=== PATIENT | female | born 1975 | race Caucasian/White ===

== ENCOUNTER 2023-12-15 15:01 | Outpatient (OUT) | payer OTHER, SELFPAY ==
--- NOTE | 2023-12-15 | CONS_ITS ---
CONSULTATION DATE: 12/15/2023 CHIEF COMPLAINT: Includes severe neck pain with right upper extremity weakness. HISTORY OF PRESENT ILLNESS: Review of systems, past medical/surgical history were obtained and documented on the health questionnaire and is available upon request. She is a 48-year-old female, reports having had neck pain for at least the last six months. It occurred after she was performing lifting maneuvers. Patient explained a sudden onset of pain at that time. She has undergone an independent home exercise program, secondary to time constraints and affordability, but the patient has been compliant with her independent home exercise program. Details of the exercises are available upon request. She has also undergone activity modification, has been on nonsteroidal use, with the use of ibuprofen for at least the last six months, but she is unable to take any nonsteroidal agents on a regular basis secondary to moderate GI distress. She has undergone massage therapy as well, at least four different treatments, and despite this, she continues to have progressive pain and weakness of her right upper extremity and pain in her neck occurring bilaterally. EXAMINATION: Notable for patient having hypoesthesia along the right C7 dermatome, weakness of the right triceps and finger flexion, a depressed right triceps reflex, depressed right biceps reflex. She had an equivocally positive right sided Spurling?s sign. She had significant myofascial spasm of the cervical paravertebral muscles occurring bilaterally, worse on the left than the right side. IMPRESSION: Our impression is patient with chronic pain secondary to right C7 radiculopathy. IMAGING: Cervical MRI was performed on 11/19/2023 which revealed a C5-6 disc herniation with right foraminal protrusion. RECOMMENDATIONS: Since she has failed conservative therapy with medication, activity modification, independent home physical therapy program and massage therapy, I feel that she would be an appropriate candidate for a cervical epidural injection under fluoroscopic guidance. Went over the details of the procedure with the patient. All questions were answered. She agrees to proceed with the outlined plan. As part of providing excellent, safe, comprehensive care, the following was completed at our patient's visit: 1. A medication reconciliation and review to ensure accurate knowledge of current/active medications, including asking our patients to inform us about any [id number] medications or herbal remedies/nutritional supplements/alternative remedies. 2. A review to specifically ensure our patients have had annual screening for: elevated body mass index (BMI, see intake chart for exact total), tobacco use, screening for depression, and screening for unhealthy alcohol use. When screening is concerning, patients are provided with education and the specific recommendation to discuss the concerning health issue and treatment options with their primary care provider. HARIKA
== END 2023-12-15 15:02 | disposition home or self-care (01) ==
LOC: PM 15:02
PROVIDERS: Visit Provider Anesthesiology Pain Medicine
DX: M54.50 Low back pain, unspecified (principal); M54.16 Radiculopathy, lumbar region
CPT/HCPCS: G0463

== ENCOUNTER 2024-01-11 09:46 | Day surgery (SDC) | payer OTHER, SELFPAY ==
[2024-01-11 10:48] VITALS: BP 145/85; PULSE 109; TEMP 36.8; O2SAT 100
[2024-01-11 11:21] VITALS: BP 139/89; BP 140/92; PULSE 102; PULSE 99; O2SAT 99
[2024-01-11] MEDS: BUPIVACAINE HCL 0.25% PF 25 MG/10 ML VIAL INJ (11:22)
[2024-01-11] MEDS: DEXAMETHASONE SOD PHOS 10 MG/ML VIAL INJ (11:22)
[2024-01-11] MEDS: IOHEXOL 240 MG/ML - 10 ML VIAL INJ (11:22)
[2024-01-11] MEDS: LIDOCAINE HCL 2% 400 MG/20 ML MDV 5 ML INJ (11:23)
--- NOTE | 2024-01-11 11:33 | W.PM.PROCNOT ---
Date of procedure: 01/11/24 Pre-op diagnosis: Pain due to cervical radiculopathy Post-op diagnosis: same as pre-op Procedure: Procedure: Bilateral C5-6 transforaminal epidural steroid injection Medications: Bupivacaine 0.25% 1cc, lidocaine 2% 1cc, dexamethasone 10mg The patient was seen and examined in the preoperative holding area.? Informed consent was obtained and placed on the chart.? Patient was brought to the medical procedure unit and placed in the prone position where a timeout was completed verifying the correct patient, procedure site, position, and planned special equipment using sterile aseptic technique.? Under direct fluoroscopic visualization a 25-gauge Quincke tipped spinal needle was advanced at level left C5-6 to the designated neural foramen where contrast dye was injected to show adequate spread.? There was no evidence of vascular or adverse uptake.? Epidural spread was appreciated.? The above-mentioned injectate was then placed in a 1.5 mL aliquot preceded by negative aspiration.? The needle was removed. The same procedure, at the same level, was completed on the opposite side. ? Patient was taken to the postprocedural recovery area and monitored for an appropriate length of time before found suitable for discharge in the accompaniment of a responsible adult. Anesthesia: Local Surgeon: Anjel Escamilla Pathology: none sent Condition: stable Disposition: no change
== END 2024-01-11 11:26 | disposition home or self-care (01) ==
PROVIDERS: Visit Provider Anesthesiology
DX: M54.12 Radiculopathy, cervical region (principal)
CPT/HCPCS: 64479; J0665; J1100; Q9966

== ENCOUNTER 2024-06-01 07:45 | Outpatient (OUT) | payer OTHER, SELFPAY ==
--- OUTSIDE RECORDS SUMMARY | 2024-06-01 07:51 | XMS_ITS | CCD ---
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 Role Phone JD ARAUJO Attending Unavailable JD ARAUJO Referring Unavailable JD ARAUJO Attending Unavailable JENNIFER RECINOS Attending Unavailable ADELIA ALDRICH Referring Unavail able Andi MARTINEZ, Anjel Aceves Attending Unavailable Tara Santana Primary Care Unavailable LENA DIAZ Attending Unavailable LENA DIAZ Attending Unavailable Allergies Allergy Classification Reported Allergen(s) Allergy Type Date of Onset Reaction(s) Facility (2 sources) Sulfamethoxazole / Trimethoprim; Translations: [SULFAMETHOXAZOLE-TR IMETHOPRIM] Drug Allergy 3 [facility] Repository (2 sources) sunflower seed extract; Translations: [SUNFLOWER SEED] Drug Allergy 3 [facility] Repository (1 source) Sulfamethoxazole / Trimethoprim; Translations: [Bactrim] Drug Allergy [facility] Repository (1 source) Ciprofloxacin; Translations: [CIPROFLOXACIN] Drug Allergy 4 [facility] Repository Problems Active Problems Problem Classification Problem Date Documented Da te Episodic/Chronic Menopausal disorders (1 source) 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 climacteric states; Translations: [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 climacteric states] Onset: 12-31-2022 Chronic Menstrual disorders (1 source) Irregular menstruation, unspecified; Translations: [Irregular menstruation, unspecified] Onset: 01-14-2023 Chronic Nutritional deficiencies (2 sources) Vitamin D deficiency, unspecified; Translations: [Vitamin D deficiency, unspecified] Onset: 04-22-2022 Chronic Other ear and sense organ disorders (2 sources) Impacted cerumen, right ear; Translations: [Impacted cerumen, right ear] Onset: 09-10-2022 Episodic Other ear and sense organ disorders (1 source) Other specified disorders of right ear; Translations: [Other specified disorders of right ear] Onset: 02-29-2024 Episodic Other ear and sense organ disorders (1 source) Swimmer's ear, right ear; Translations: [Swimmer's ear, right ear] Onset: 02-29-2024 Episodic Substance-related disorders (2 sources) Nicotine dependence, cigarettes, uncomplicated; Translations: [Nicotine dependence, cigarettes, uncomplicated] Onset: 04-22-2022 Chronic Unclassified (1 source) ears plugged Onset: 02-29-2024 Viral infection (2 sources) COVID-19; Translations: [COVID-19] Onset: 04-22-2022 Past or Other Problems Problem Classification Problem Date Documented Da te Episodic/Chronic Noninfectious gastroenteritis (2 sources) Noninfective gastroenteritis and colitis, unspecified; Translations: [Noninfective gastroenteritis and colitis, unspecified] Onset: 05-20-2022 Episodic Other ear and sense organ disorders (1 source) Otalgia, right ear; Translations: [Otalgia, right ear] Onset: 05-05-2023 Episodic Other gastrointestinal disorders (2 sources) Diarrhea, unspecified; Translations: [Diarrhea, unspecified] Onset: 04-22-2022 Episodic Other nutritional; endocrine; and metabolic disorders (2 sources) Abnormal weight loss; Translations: [Abnormal weight loss] Onset: 04-22-2022 Episodic Other upper respiratory disease (1 source) Nasal congestion; Translations: [Nasal congestion] Onset: 05-05-2023 Episodic Other upper respiratory disease (1 source) Nasal congestion Onset: 05-05-2023 Episodic Residual codes; unclassified (1 source) Other specified postprocedural states; Translations: [Other specified postprocedural states] Onset: 05-05-2023 Episodic Results Test Name Value Interpretation Reference Range Facility US NON OB TRANSVAGINALon US 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 Heterogeneous appearing uterus measures: 9.4 x 5.6 x 4.6 cm Endometrium measures: 4.3 mm Multiple fibroids are seen; largest three fabiola: #1: Subserosal right uterus fabiola: 2.3 x 1.7 x 1.7 cm #2: Subserosal left uterus fabiola: 1.3 x 1.1 x 1.4 cm #3: Intramural mid uterus fabiola: 1.0 x 1.4 x 1.1 cm Right ovary appears WNL Left ovary appears WNL Interpreted by: Adelia Aldrich DO Signed by: Adelia Aldrich DO 01/21/23 Final result [facility] HPV DNA High Riskon 01-03-20 HPV Interp [facility] Comment on above: Result Comment: This test amplifies and detects DNA of 14 high-risk HPV types associated with cervical cancer and its precursor lesions (HPV types 16,18, 31, 33, 35, 39, 45, 51, 52, 56, 58, 59, 66, and 68). Sensitivity may be affected by specimen collection methods, stage of infection, and the presence of interfering substances. Results should be interpreted in conjunction with other available laboratory and clinical data. A negative high-risk HPV result does not exclude the possibility of future cytologic HSIL or underlying CIN2-3 or cancer. This test is intended for medical purposes only and is not valid for the evaluation of suspected sexual abuse or for other forensic purposes. Performed By: #### H PVH #### [facility] [address] [place], [place] [id number] Washer Machine: Abundio Julien MD HPV Type 16 Not detected [facility] Comment on above: Performed By: #### H PVH #### [facility] [address] [place] [address] [id number] Washer Machine: Abundio Julien MD HPV Type 18 Not detected [facility] Comment on above: Performed By: #### H PVH #### [facility] [address] [place] [address] [id number] Washer Machine: Abundio Julien MD Other High Risk HPV Not detected Normal [facility] Comment on above: Performed By: #### H PVH #### [address] [id number] Washer Machine: Abundio Julien MD HPV DNA High Riskon 01-02-20 23 HPV Sample .THIN PREP [facility] Comment on above: Performed By: #### H PVH #### [address] [id number] Washer Machine: Abundio Julien MD Source CERVICAL MATERIAL Normal [facility] Comment on above: Performed By: #### H PVH #### [address] [id number] Washer Machine: Abundio Julien MD Cytology Reporton 12-31-2022 Cytology report Cyto stain.thin prep Doc (Cvx/Vag) (NOTE) Path Number: [id number] DIAGNOSIS Imaged ThinPrep Pap - Cervical (1 monolayer slide): Specimen Adequacy: Satisfactory for evaluation. - Endocervical/transforma tion zone component present. Descriptive Diagnosis: Negative for intraepithelial lesion or malignancy. Reactive cellular changes associated with inflammation. Endometrial cells are present in a woman 45 years of age or older. Endometrial cells correlate with menstrual history provided. Cytotech Screener: [id number] Electronically Signed Out Mahesh Treviño D.O. kelin/01/06/2023 Procedure/Addendum HPV Procedure Report Date Ordered: 01/01/2023 Status: Signed Out Date Complete: 01/02/2023 By: System Interface Date Reported: 01/02/2023 Sample: HPV Type 16 Result: Not Detected Ref Range: (Not Detected) Sample: HPV Type 18 Result: Not Detected Ref Range: (Not Detected) Sample: Other High Risk HPV Result: Not Detected Ref Range: (Not Detected) Sample: HPV Interp Result: Ref Range: (Not Detected) This test amplifies and detects DNA of 14 high-risk HPV types associated with cervical cancer and its precursor lesions (HPV types 16,18, 31, 33, 35, 39, 45, 51, 52, 56, 58, 59, 66, and 68). Sensitivity may be affected by specimen collection methods, stage of infection, and the presence of interfering substances. Results should be interpreted in conjunction with other available laboratory and clinical data. A negative high-risk HPV result does not exclude the possibility of future cytologic HSIL or underlying CIN2-3 or cancer. This test is intended for medical purposes only and is not valid for the evaluation of suspected sexual abuse or for other forensic purposes. Performed at [facility], [address] [place] [address] [id number] . Source of Specimen: A: Imaged ThinPrep Pap - Cervical (1 monolayer slide) HPV Reflex?................ ......HPV Regardless Clinical History Z01.419 Routine cia agent exam without abnormal findings Co-Test: ThinPrep Pap with high risk HPV testing LMP: 12/18/2022 Processing Lab: [address] [id number] Interpretation performed at [address] [address] This Pap Test has been evaluated with the assistance of the ThinPrep Pap Test Imaging System. The Pap smear is a screening test primarily for squamous epithelial lesions, which is subject to both false negative and false positive results. Your patient should be reminded to consult you immediately if she experiences any suspicious signs or symptoms, regardless of her Pap smear result. GYNECOLOGIC CYTOLOGY REPORT Patient Name: [facility] Rec: [id number] [facility] ANATOMIC PATHOLOGY [address] [place] [address]. [place], [place] [address] [facility] Estradiolon 12-31-2022 Estradiol 370.0 pg/mL [facility] Comment on above: Result Comment: FEMALES: Normally menstruating Luteal phase 60-232 Follicular phase 31-90 Midcycle phase 60-533 Postmenopausal (untreated) <138 Fulvestrant treatment will show an increased estradiol concentration with this methodology. Alternate methodologies are available upon request. Performed By: #### F , E2 #### [address] [id number] Washer Machine: Abundio Julien MD Follicle Stim. Hormon 2022 Follicle Stim. Horm 16.8 mIU/mL Normal [facility] Comment on above: Result Comment: Refe rence Range: Male: 1.5-12.4 Ovulating Female: Follicular Phase 3.5-12.5 Ovulation Phase 4.7-21.5 Luteal Phase 1.7-7.7 Postmenopausal Female: 25.8-134.8 Performed By: #### F SH, E2 #### [facility] [place] [address] [place] [address] Washer Machine: Abundio Julien MD Office Visiton 09-10-2022 Follow-up visit [id number] Manolo Fan 1975 F Date Provider Department Center 09/10/2022 Yesica1-JENNIFER RECINOS [facility] INT MED Comprehensiv No family history on file Level of Service:[id number] AR OFFICE/OUTPATIENT ESTABLISHED LOW MDM 20-29 MIN (GC) Reason for Visit and Comments: ear infection [Other] - Right ear started a few weeks ago. Normal [facility] CBC WITH DIFFon 05-28-2022 ABS BASOPHIL 0.08 x10^3ul Normal (0.00 - 0.16) [facility] Comment on above: Order Comment: 4ACIL ITY: [facility] FACILITY: [facility] [id number] Performed By: #### C BC/D, CHEM-C, CELIC4, ESRCRP, TSHFX, IGA, LIP #### [facility] [address] [facility], [address] ABS EOSINOPHIL 0.05 x10^3ul Normal (0.00 - 0.40) [facility] Comment on above: Order Comment: 4ACIL ITY: [facility] FACILITY: [facility] [id number] Performed By: #### C BC/D, CHEM-C, CELIC4, ESRCRP, TSHFX, IGA, LIP #### [facility] [address] [facility], [address] ABS IMMATURE GRANS 0.03 x10^3ul Normal (0.00 - 0.11) [facility] Comment on above: Order Comment: 4ACIL ITY: [facility] FACILITY: [facility] [id number] Performed By: #### C BC/D, CHEM-C, CELIC4, ESRCRP, TSHFX, IGA, LIP #### [facility] [address] [facility], [address] ABS LYMPHOCYTE 1.79 x10^3ul Normal (0.96 - 5.40) [facility] Comment on above: Order Comment: 4ACIL ITY: [facility] FACILITY: [facility] [id number] Performed By: #### C BC/D, CHEM-C, CELIC4, ESRCRP, TSHFX, IGA, LIP #### [facility] [address] [facility], [address] ABS MONOCYTE 0.63 x10^3ul Normal (0.10 - 1.00) [facility] Comment on above: Order Comment: 4ACIL ITY: [facility] FACILITY: [facility] [id number] Performed By: #### C BC/D, CHEM-C, CELIC4, ESRCRP, TSHFX, IGA, LIP #### [facility] [facility], [address] ABS NEUTROPHIL 7.11 x10^3ul High (1.50 - 7.00) [facility] Comment on above: Order Comment: 4ACIL ITY: [facility] FACILITY: [facility] [id number] Performed By: #### C BC/D, CHEM-C, CELIC4, ESRCRP, TSHFX, IGA, LIP #### [facility] [address] [facility], [address] Basophils/100 WBC (Bld) 0.8 % Normal () [facility] Comment on above: Order Comment: 4ACIL ITY: [facility] FACILITY: [facility] [id number] Performed By: #### C BC/D, CHEM-C, CELIC4, ESRCRP, TSHFX, IGA, LIP #### [facility] [address] [facility], [id number] Eosinophils/100 WBC (Bld) 0.5 % Normal () [facility] Comment on above: Order Comment: 4ACIL ITY: [facility] FACILITY: [facility] [id number] Performed By: #### C BC/D, CHEM-C, CELIC4, ESRCRP, TSHFX, IGA, LIP #### [facility] [address] [place], [place] [address]or Rd. [facility], [address] Hematocrit (Bld) [Volume fraction] 39.4 % Normal (37.0 - 47.0) [facility] Comment on above: Order Comment: 4ACIL ITY: [facility] FACILITY: [facility] [id number] Performed By: #### C BC/D, CHEM-C, CELIC4, ESRCRP, TSHFX, IGA, LIP #### [facility] [address] [place] [address] Rd. [facility], [address] Hemoglobin (Bld) [Mass/Vol] 13.3 g/dL Normal (12.0 - 16.0) [facility] Comment on above: Order Comment: 4ACIL ITY: [facility] FACILITY: [facility] [id number] Performed By: #### C BC/D, CHEM-C, CELIC4, ESRCRP, TSHFX, IGA, LIP #### [facility] [address] [facility], [address] IMMATURE GRANS (IG) 0.3 % Normal () [facility] Comment on above: Order Comment: 4ACIL ITY: [facility] FACILITY: [facility] [id number] Performed By: #### C BC/D, CHEM-C, CELIC4, ESRCRP, TSHFX, IGA, LIP #### [facility] [address] [facility], [address] LYMPS 18.5 % Normal () [facility] Comment on above: Order Comment: 4ACIL ITY: [facility] FACILITY: [facility] [id number] Performed By: #### C BC/D, CHEM-C, CELIC4, ESRCRP, TSHFX, IGA, LIP #### [facility] [address] [facility], [address] MCH (RBC) [Entitic mass] 29.8 pg Normal (27.0 - 33.0) [facility] Comment on above: Order Comment: 4ACIL ITY: [facility] FACILITY: [facility] [id number] Performed By: #### C BC/D, CHEM-C, CELIC4, ESRCRP, TSHFX, IGA, LIP #### [facility] [address] [facility], [address] MCHC (RBC) [Mass/Vol] 33.8 g/dL Normal (30.0 - 37.0) [facility] Comment on above: Order Comment: 4ACIL ITY: [facility] FACILITY: [facility] [id number] Performed By: #### C BC/D, CHEM-C, CELIC4, ESRCRP, TSHFX, IGA, LIP #### [facility] [address] [facility], [address] MCV (RBC) [Entitic vol] 88.3 fL Normal (81.0 - 99.0) [facility] Comment on above: Order Comment: 4ACIL ITY: [facility] FACILITY: [facility] [id number] Performed By: #### C BC/D, CHEM-C, CELIC4, ESRCRP, TSHFX, IGA, LIP #### [facility] [address] [facility], [address] MONOS 6.5 % Normal () [facility] Comment on above: Order Comment: 4ACIL ITY: [facility]: [facility] [id number] Performed By: #### C BC/D, CHEM-C, CELIC4, ESRCRP, TSHFX, IGA, LIP #### [facility] [address] [place], [address] PLT 312 x10^3ul Normal (130 - 400) [facility] Comment on above: Order Comment: 4ACIL ITY: [facility]: [facility] [id number] Performed By: #### C BC/D, CHEM-C, CELIC4, ESRCRP, TSHFX, IGA, LIP #### [facility] [address] [place], [address] RBC 4.46 x10^6ul Normal (4.20 - 5.40) [facility] Comment on above: Order Comment: 4ACIL ITY: [facility]: [facility] [id number] Performed By: #### C BC/D, CHEM-C, CELIC4, ESRCRP, TSHFX, IGA, LIP #### [facility] [address] [place], [address] RDW-SD 49.1 fl High (37.0 - 49.0) [place] [facility] Comment on above: Order Comment: 4ACIL ITY: [facility]: [facility] [id number] Performed By: #### C BC/D, CHEM-C, CELIC4, ESRCRP, TSHFX, IGA, LIP #### [facility] [address] [place], [address] SEGS 73.4 % Normal () [facility] Comment on above: Order Comment: 4ACIL ITY: [facility]: [facility] [id number] Performed By: #### C BC/D, CHEM-C, CELIC4, ESRCRP, TSHFX, IGA, LIP #### [facility] [address] [place], [address] WBC 9.68 x10^3ul Normal (3.80 - 10.60) [facility] Comment on above: Order Comment: 4ACIL ITY: [facility] FACILITY: [facility] [id number] Performed By: #### C BC/D, CHEM-C, CELIC4, ESRCRP, TSHFX, IGA, LIP #### [facility] [address] [place], [address] COMP METABOLIC PANEL W/GFRon 05-28-2022 Albumin [Mass/Vol] 4.3 g/dL Normal (3.5 - 5.0) [facility] Comment on above: Performed By: #### C BC/D, CHEM-C, CELIC4, ESRCRP, TSHFX, IGA, LIP #### [facility] [address] [place], [address] ALK PHOS 65 U/L Normal (38 - 126) [facility] Comment on above: Performed By: #### C BC/D, CHEM-C, CELIC4, ESRCRP, TSHFX, IGA, LIP #### [facility] [address] [place], [address] ALT [Catalytic activity/Vol] 16 U/L Normal (1 - 35) [facility] Comment on above: Performed By: #### C BC/D, CHEM-C, CELIC4, ESRCRP, TSHFX, IGA, LIP #### [facility] [address] [place], [address] AST [Catalytic activity/Vol] 22 U/L Normal (15 - 46) [facility] Comment on above: Performed By: #### C BC/D, CHEM-C, CELIC4, ESRCRP, TSHFX, IGA, LIP #### [place] [facility] [address] [place], [address] Bilirubin [Mass/Vol] 0.7 mg/dL Normal (0.2 - 1.3) [facility] Comment on above: Performed By: #### C BC/D, CHEM-C, CELIC4, ESRCRP, TSHFX, IGA, LIP #### [facility] [address] [place], [address] Calcium [Mass/Vol] 9.0 mg/dL Normal (8.6 - 10.6) [facility] Comment on above: Performed By: #### C BC/D, CHEM-C, CELIC4, ESRCRP, TSHFX, IGA, LIP #### [facility] [address] [place], [address] Chloride [Moles/Vol] 105 mmol/L Normal (98 - 107) [facility] Comment on above: Performed By: #### C BC/D, CHEM-C, CELIC4, ESRCRP, TSHFX, IGA, LIP #### [facility] [address] [place], [address] CO2 [Moles/Vol] 23 mmol/L Normal (22 - 30) [place] [facility] Comment on above: Performed By: #### C BC/D, CHEM-C, CELIC4, ESRCRP, TSHFX, IGA, LIP #### [place] [facility] [address] [place], [address] Creatinine [Mass/Vol] 0.63 mg/dL Normal (0.52 - 1.04) [facility] Comment on above: Performed By: #### C BC/D, CHEM-C, CELIC4, ESRCRP, TSHFX, IGA, LIP #### [facility] [address] [place], [address] GFR- AMER 122.6 ML/M1.7 Normal (60.0 - 140.1) [facility] Comment on above: Performed By: #### C BC/D, CHEM-C, CELIC4, ESRCRP, TSHFX, IGA, LIP #### [place] [facility] [address] [place], [address] GFR-NON AFRIC-AMER 101.3 ML/M1.7 Normal (60.0 - 115.8) [facility] Comment on above: Performed By: #### C BC/D, CHEM-C, CELIC4, ESRCRP, TSHFX, IGA, LIP #### [place] [facility] [address] [place], [address] Glucose [Mass/Vol] 100 mg/dL Normal (74 - 106) [facility] Comment on above: Performed By: #### C BC/D, CHEM-C, CELIC4, ESRCRP, TSHFX, IGA, LIP #### [place] [facility] [address] [place], [address] Potassium [Moles/Vol] 4.5 mmol/L Normal (3.5 - 5.1) [facility] Comment on above: Performed By: #### C BC/D, CHEM-C, CELIC4, ESRCRP, TSHFX, IGA, LIP #### [place] [facility] [address] [place], [address] Protein [Mass/Vol] 7.1 g/dL Normal (6.3 - 8.2) [facility] Comment on above: Performed By: #### C BC/D, CHEM-C, CELIC4, ESRCRP, TSHFX, IGA, LIP #### [place] [facility] [address] [place], [address] Sodium [Moles/Vol] 135 mmol/L Low (137 - 145) [facility] Comment on above: Performed By: #### C BC/D, CHEM-C, CELIC4, ESRCRP, TSHFX, IGA, LIP #### [facility] [address] [facility], [address] Urea nitrogen [Mass/Vol] 12 mg/dL Normal (7 - 17) [facility] Comment on above: Performed By: #### C BC/D, CHEM-C, CELIC4, ESRCRP, TSHFX, IGA, LIP #### [facility] [address] [facility], [address] DGP,IGA/IGG + TTG, IGA/IGGon 05-28-2022 ANTI-TTG, IGA 0.9 U/mL Normal (0.0 - 10.0) [facility] in Comment on above: Performed By: #### C BC/D, CHEM-C, CELIC4, ESRCRP, TSHFX, IGA, LIP #### [facility] [address] [facility], [address] ANTI-TTG, IGG 0.7 U/mL Normal (0.0 - 10.0) [facility] in Comment on above: Result Comment: REFERENCE RANGE DEAMIDATED GLIADIN PEPTIDE, IGA & IGG : < 7.0 U/mL = NEGATIVE 7.0 - 10.0 U/mL = BORDERLINE > 10.0 U/mL = POSITIVE REFERENCE RANGE ANTI-TTG, IGA & IGG: < 7.0 U/mL = NEGATIVE 7.0 - 10.0 U/mL = BORDERLINE > 10.0 U/mL = POSITIVE PERFORMED ON stiQRd [facility] 06-14-2021 Performed By: #### C BC/D, CHEM-C, CELIC4, ESRCRP, TSHFX, IGA, LIP #### [facility] [address] [facility], [address] DEAMIDATED GLIADIN PEPTIDE, IGA 4.1 U/mL Normal (0.0 - 10.0) [facility] Comment on above: Performed By: #### C BC/D, CHEM-C, CELIC4, ESRCRP, TSHFX, IGA, LIP #### [facility] [address] [place], [address] DEAMIDATED GLIADIN PEPTIDE, IGG <0.6 Normal (0.0 - 10.0) [facility] Comment on above: Performed By: #### C BC/D, CHEM-C, CELIC4, ESRCRP, TSHFX, IGA, LIP #### [facility] [address] [place], [address] IgA, TOTALon 05-28-2022 IgA, TOTAL 282 MG/DL Normal (70 - 400) [facility] Comment on above: Performed By: #### C BC/D, CHEM-C, CELIC4, ESRCRP, TSHFX, IGA, LIP #### [facility] [address] [place], [address] LIPASEon 05-28-2022 Lipase [Catalytic activity/Vol] 32 U/L Normal (23 - 300) [facility] Comment on above: Performed By: #### C BC/D, CHEM-C, CELIC4, ESRCRP, TSHFX, IGA, LIP #### [facility] [address] [place], [address] SED RATE - CRPon 05-28-2022 CRP EXTENDED RANGE <0.34 Normal (0.00 - 3.20) [facility] Comment on above: Result Comment: CRP RESULT IS <0.34 MG/L CRP MIN DETECTION = 0.34 MG/L Performed By: #### C BC/D, CHEM-C, CELIC4, ESRCRP, TSHFX, IGA, LIP #### [facility] [address] [place], [address] SED RATE WEST. 6 MM/HR Normal (0 - 25) [facility] Comment on above: Performed By: #### C BC/D, CHEM-C, CELIC4, ESRCRP, TSHFX, IGA, LIP #### [facility] [address] [place], [address] TSH WITH REFLEXon 05-28-2022 REFLEX T4, FREE NO Normal () [facility] Comment on above: Performed By: #### C BC/D, CHEM-C, CELIC4, ESRCRP, TSHFX, IGA, LIP #### [facility] [address] [facility], [address] TSH Qn 0.940 m[IU]/L Normal (0.470 - 4.680) [facility] Comment on above: Performed By: #### C BC/D, CHEM-C, CELIC4, ESRCRP, TSHFX, IGA, LIP #### [facility] [address] [facility], [address] Office Visiton 05-20-2022 Follow-up visit [id number] Manolo Fan 1975 F Date Provider Department Center 05/20/2022 [facility] MED Comprehensiv No family history on file Level of Service:14927 [place] OFFICE/OUTPATIENT ESTABLISHED MOD MDM 30-39 MIN Reason for Visit and Comments: follow up [Other] - Pt here lab follow up. Diarrhea [35] Normal [facility] CT ABDOMEN PELVIS WO IV CONT Yeni 05-07-2022 CT ABDOMEN PELVIS WO IV CONTRAST History:Unintentional weight loss after Covid infection CT abdomen and pelvis without contrast Comparison:None Technique: Axial images to the abdomen and pelvis were obtained without contrast. Subsequently sagittal and coronal images were submitted to PACS. Automated exposure control was used Findings: CT abdomen: 3 mm nonobstructing left renal stone is confirmed. There is no hydronephrosis there are no right renal stones. No acute process is appreciated in the unenhanced liver or spleen. Doppler small in size. Pancreas is not well seen due to poor fascial plane definition. Adrenal glands appear grossly normal. Abdominal aorta is normal. Pelvis: No urinary bladder stone is appreciated. The uterus is anteverted no obvious bowel obstruction. Assessment of bowel is hampered without oral contrast. There is no free air. No acute osseous process is observed. No bulky adenopathy is noted. Lumbar spine is free of any acute process IMPRESSION: Impression: *There is a 3 mm nonobstructing inferior left renal stone noted as detailed above' All CT scans at this facility use dose modulation, iterative reconstruction, and/or weight based dosing when appropriate to reduce radiation dose to as low as reasonably achievable. Electronically signed: Veena Bach. Normal [facility] CBC WITH AUTO DIFFERENTIALon 04-22-2022 Basophils (Bld) [#/Vol] 0.07 10*3/uL Normal 0.00-0.20 [facility] Comment on above: Performed By: #### L [id number] #### [facility] (BEAKER) [address] [place] [address] Basophils/100 WBC (Bld) 0.9 % Normal 0.0-1.0 [facility] Comment on above: Performed By: #### L [id number] #### [facility] (BEAKER) [address] [place] [address] Eosinophils (Bld) [#/Vol] 0.08 10*3/uL Normal 0.00-0.50 [facility] Comment on above: Performed By: #### L [id number] #### [facility] (BEAKER) [address] [place] [address] Eosinophils/100 WBC (Bld) 1.0 % Normal 0.0-6.0 [facility] Comment on above: Performed By: #### L [id number] #### [facility] (BEAKER) [address] [place] [address] Erythrocyte distribution width (RBC) [Ratio] 14.5 % Normal 11.5-15.0 [facility] Comment on above: Performed By: #### L [id number] #### [facility] (BEAKER) [address] [facility] [place] [address] ERYTHROCYTE MEAN CORPUSCULAR HEMOGLOBIN CONCENTRATION (G/DL) BY AUTOMATED 32.6 g/dL Normal 32.0-35.0 [facility] Comment on above: Performed By: #### L [id number] #### [facility] (BEAKER) [address] [facility] [place] [address] Hematocrit (Bld) [Volume fraction] 39.6 % Normal 36.0-48.0 [facility] Comment on above: Performed By: #### L [id number] #### [facility] (BEAKER) [address] [place] [address] Hemoglobin (Bld) [Mass/Vol] 12.9 g/dL Normal 12.0-15.0 [facility] Comment on above: Performed By: #### L [id number] #### [facility] ([facility] [address] [place] [address] Immature granulocytes (Bld) [#/Vol] 0.02 10*3/uL Normal 0.00-0.20 [facility] Comment on above: Performed By: #### L [id number] #### [facility] (BEAKER) [address] [place] [address] Immature granulocytes/100 WBC (Bld) 0.3 % Normal 0.0-1.0 [facility] Comment on above: Performed By: #### L [id number] #### [facility] (BEAKER) [address] [place] [address] Lymphocytes (Bld) [#/Vol] 2.09 10*3/uL Normal 1.20-4.00 [facility] Comment on above: Performed By: #### L [id number] #### [facility] (BEAKER) [address] [place] [address] Lymphocytes/100 WBC (Bld) 26.6 % Normal 20.0-45.0 [facility] Comment on above: Performed By: #### L [id number] #### [facility] (BEAKER) [address] [place] [address] MCH (RBC) [Entitic mass] 28.7 pg Normal 27.0-33.0 [facility] Comment on above: Performed By: #### L [id number] #### [facility] (BEAKER) [address] [place] [address] MCV (RBC) [Entitic vol] 88.0 fL Normal 82.0-98.0 [facility] Comment on above: Performed By: #### L [id number] #### [facility] ([facility]) [address] [place] [address] Monocytes (Bld) [#/Vol] 0.51 10*3/uL Normal 0.10-1.00 [facility] Comment on above: Performed By: #### L [id number] #### [facility] ([facility]) [address] [place] [address] Monocytes/100 WBC (Bld) 6.5 % Normal 5.0-12.0 [facility] Comment on above: Performed By: #### L [id number] #### [facility] ([facility]) [address] [place] [address] Neutrophils (Bld) [#/Vol] 5.10 10*3/uL Normal 1.60-7.60 [facility] Comment on above: Performed By: #### L [id number] #### [facility] ([facility]) [address] [place] [address] Neutrophils/100 WBC (Bld) 64.7 % Normal 40.0-72.0 [facility] Comment on above: Performed By: #### L [id number] #### [facility] ([facility]) [address] [place] [address] NRBC (PER 100 WBCS) BY AUTOMATED COUNT 0.0 % Normal 0.0-0.0 [facility] Comment on above: Performed By: #### L [id number] #### [facility] ([facility]) [address] [place] [address] PLATELETS (10*3/UL) IN BLOOD AUTOMATED COUNT 293 10*3/uL Normal 150-400 [facility] Comment on above: Performed By: #### L [id number] #### [facility] ([facility]) [address] [place] [address] RBC (Bld) [#/Vol] 4.50 10*6/uL Normal 3.80-5.00 [facility] Comment on above: Performed By: #### L [id number] #### [facility] ([facility]) [address] [place] [address] WBC (Bld) [#/Vol] 7.87 10*3/uL Normal 4.00-10.60 [facility] Comment on above: Performed By: #### L [id number] #### [facility] ([facility]) [address] [place] [address] CELIAC REFLEX PANELon 2022 IMMUNOGLOBULIN A 230 mg/dL Normal 68-[address] [facility] Comment on above: Result Comment: Total IgA is within or higher than established ranges. Tissue Transglutaminase, IgA to follow. REFERENCE INTERVAL: Immunoglobulin A Access complete set of age- and/or gender-specific reference intervals for this test in the [facility] Test Directory ([employer]). Performed By: [facility] [address] [place] [address] Motor Vehicle Compliance Analyst: Donald Jeronimo MD, PhD Performed By: #### L [id number] #### [facility] ([facility]) [address] [place] [address] COMPREHENSIVE METABOLIC PANE [place] 04-22-2022 Albumin [Mass/Vol] 4.3 g/dL Normal 3.5-5.7 [facility] Comment on above: Performed By: #### L [id number] #### [facility] ([facility]) [address] [place] [address] ALP [Catalytic activity/Vol] 56 U/L Normal 34-104 [facility] Comment on above: Performed By: #### L [id number] #### [facility] ([facility]) [address] [place] [address] ALT [Catalytic activity/Vol] 16 U/L Normal 7-52 [facility] Comment on above: Performed By: #### L [id number] #### [facility] ([facility]) [address] [place] [address] Anion gap [Moles/Vol] 7 mmol/L Normal 7-20 [facility] Comment on above: Performed By: #### L [id number] #### [facility] (BEAKER) [address] [place] [address] AST [Catalytic activity/Vol] 20 U/L Normal 13-39 [facility] Comment on above: Performed By: #### L [id number] #### [facility] (BEAKER) [address] [place] [address] Bilirubin [Mass/Vol] 0.6 mg/dL Normal 0.3-1.0 [facility] Comment on above: Performed By: #### L [id number] #### [facility] (BEAKER) [address] [place] [address] Calcium [Mass/Vol] 9.2 mg/dL Normal 8.6-10.3 [facility] Comment on above: Performed By: #### L [id number] #### [facility] (BEAKER) [address] [place] [address] Chloride [Moles/Vol] 103 mmol/L Normal 98-107 [facility] Comment on above: Performed By: #### L [id number] #### [facility] (BEAKER) [address] [place] [address] CO2 [Moles/Vol] 28 mmol/L Normal 21-31 [facility] Comment on above: Performed By: #### L [id number] #### [facility] (BEAKER) [address] [place] [address] Creatinine [Mass/Vol] 0.77 mg/dL Normal 0.60-1.20 [facility] Comment on above: Performed By: #### L [id number] #### [facility] (BEAKER) [address] [place] [address] GLOMERULAR FILTRATION RATE ML/MIN/1.73 SQ M.PREDICTED 92.2 mL/min/1.73m*2 Normal >60.0 [facility] Comment on above: Result Comment: The [facility]???s estimated glomerular filtration rate (eGFR) will no longer include consideration of race in its calculation. The National Kidney Foundation???s eGFR Task Force developed new recommendations for the estimation of the glomerular filtration rate in the [place] They recommend immediate implementation of the new equation refit without the race variable in all laboratories because the calculation does not include race. In addition to not including race in the calculation and reporting, it included diversity in its development, and has acceptable performance characteristics and potential consequences that do not disproportionately affect any one group of individuals. Performed By: #### L [id number] #### [facility] ([facility]) [address] [place] [address] Glucose [Mass/Vol] 80 mg/dL Normal 70-100 [facility] Comment on above: Performed By: #### L [id number] #### [facility] ([facility]) [address] [place] [address] Potassium [Moles/Vol] 3.9 mmol/L Normal 3.5-5.1 [facility] Comment on above: Performed By: #### L [id number] #### [facility] ([facility]) [address] [place] [address] Protein [Mass/Vol] 6.5 g/dL Normal 6.0-8.3 [facility] Comment on above: Performed By: #### L [id number] #### [facility] ([facility]) [address] [place] [address] Sodium [Moles/Vol] 138 mmol/L Normal 136-145 [facility] Comment on above: Performed By: #### L [id number] #### [facility] (BEAKER) [address] [place] [address] Urea nitrogen [Mass/Vol] 11 mg/dL Normal 7-25 [facility] Comment on above: Performed By: #### L [id number] #### [facility] ([facility]) [address] [place] [address] UREA NITROGEN/CREATININE (MASS RATIO) IN SER/PLAS 14.29 Normal [facility] Comment on above: Performed By: #### L [id number] #### [facility] (BEAKER) [address] [place] [address] LIPID PANELon 04-22-2022 CHOL/HDL 2.68 mg/dL Normal [facility] Comment on above: Performed By: #### L [id number] #### [facility] ([facility]) [address] [place] [address] Cholesterol [Mass/Vol] 217 mg/dL High 120-200 [facility] Comment on above: Performed By: #### L [id number] #### [facility] ([facility]) [address] [place] [address] Magnesium [Mass/Vol] 62 mg/dL Normal 40-149 [facility] Comment on above: Result Comment: TRIG LYCERIDE REFERENCE RANGE: 20 YEARS AND OLDER CARDIOVASCULAR RISK LESS THAN 150 mg/dL LOW RISK 150 TO 199 mg/dL BORDERLINE RISK 200 mg/dL AND GREATER HIGH RISK Performed By: #### L [id number] #### [facility] ([facility]) [address] [place] [address] Magnesium [Mass/Vol] 124 mg/dL Normal 0-160 [facility] Comment on above: Performed By: #### L [id number] #### [facility] ([facility]) [address] [place] [address] Magnesium [Mass/Vol] 81 mg/dL Normal 23-92 [facility] Comment on above: Performed By: #### L [id number] #### [facility] ([facility]) [address] [place] [address] NON HDL CHOL. (LDL+VLDL) 136 Normal [facility] Comment on above: Performed By: #### L [id number] #### [facility] ([facility]) [address] [place] [address] TOTAL VLDL-C 12 mg/dL Normal 0-40 [facility] Comment on above: Performed By: #### L [id number] #### [facility] ([facility]) [address] [place] [address] [place] 04-22-2022 Lab [id number] Manolo Fan 1975 F Date Provider Department [place] 04/22/20222241-[facility] RESOURCE [facility] Comprehensiv No family history on file Normal [facility] Office Visiton 04-22-2022 Follow-up visit [id number] Manolo Fan 1975 F Date Provider Department Center 04/22/2022 [place] Mitchell [facility] INT MED Comprehensiv No family history on file Level of Service:97426 [place] PERIODIC PREVENTIVE MED EST PATIENT 40-64YRS Reason for Visit and Comments: weightloss [Other] - Pt has concerns for weight loss since having covid in the past. Normal [facility] TISSUE TRANSGLUTAMINASE, IGA on 04-22-2022 TISSUE TRANSGLUTAMINASE, IGA <2 Normal 0-3 [facility] Comment on above: Result Comment: No further celiac testing to be performed. INTERPRETIVE INFORMATION: Tissue Transglutaminase (tTG) Antibody, IgA 3 U/mL or less: Negative 4-10 U/mL: Weak Positive 11 U/mL or greater: Positive Presence of the tissue transglutaminase (tTG) IgA antibody is associated with glutensensitive enteropathies such as celiac disease and dermatitis herpetiformis. tTG IgA antibody concentrations greater than 40 U/mL usually correlate with results of duodenal biopsies consistent with a diagnosis of celiac disease. For antibody concentrations greater or equal to 4 U/mL but less than or equal to 40 U/mL, additional testing for endomysial (ERIC) IgA concentrations may improve the positive predictive value for disease. Performed By: [facility] [address] [place] [address] Motor Vehicle Compliance Analyst: Donald Jeronimo MD, PhD Performed By: #### L [id number] #### [facility]) [address] [place] [address] TSH3 REFLEX TO FT4on 023 THYROTROPIN (MIU/L) IN SER/PLAS BY DETECTION LIMIT <= 0.05 MIU/L 1.24 mIU/L Normal 0.34-5.60 [facility] Comment on above: Performed By: #### L [id number] #### [facility]) [address] [place] [address] VITAMIN D 25 HYDROXYon 04-22 CALCIDIOL (25 [place] VITAMIN D3) (NG/ML) IN SER/PLAS 53.0 ng/mL Normal 30.0-80.0 [facility] Comment on above: Result Comment: >80. 0 Toxicity possible Performed By: #### L [id number] #### [facility] (BEAKER) [address] [place] [address] CBC COMPLETE BLOOD COUNTon 10-07-2019 Erythrocyte distribution width (RBC) [Ratio] 14.0 % Normal 11.5-15.0 [facility] Comment on above: Performed By: #### 5 0608 #### [facility] [address] [place] [address], [facility] Hematocrit (Bld) [Volume fraction] 37.4 % Normal 36.0-45.0 [facility] Comment on above: Performed By: #### 5 0608 #### [facility] [address] [place] [address], [facility] Hemoglobin (Bld) [Mass/Vol] 12.1 g/dL Normal 12.0-15.0 [facility] Comment on above: Performed By: #### 5 0608 #### [facility] [address] [place] [address], [facility] MCH (RBC) [Entitic mass] 28.9 pg Normal 27.0-33.0 [facility] Comment on above: Performed By: #### 5 0608 #### [facility] [address] [place] [address], [facility] MCHC (RBC) [Mass/Vol] 32.4 g/dL Normal 32.0-35.0 [facility] Comment on above: Performed By: #### 5 0608 #### [facility] [address] [facility] [place] [address], [facility] MCV (RBC) [Entitic vol] 89.5 fL Normal 82.0-98.0 [facility] Comment on above: Performed By: #### 5 0608 #### [facility] [address] [facility] [place] [place] [address] [place] [address] Nucleated RBC/100 WBC (Bld) [Ratio] 0 % Normal 0-[address] [facility] Comment on above: Performed By: #### 5 0608 #### [facility] [address] [facility] [place] [address], [facility] PLAT CNT 267 10*3/uL Normal 150-400 [facility] Comment on above: Performed By: #### 5 0608 #### [facility] [address] [facility]. [address] RBC (Bld) [#/Vol] 4.18 10*6/uL Normal 3.80-5.[address] [facility] Comment on above: Performed By: #### 5 0608 #### [facility] [address] WBC (Bld) [#/Vol] 4.71 10*3/uL Normal 4.00-10.60 [facility] Comment on above: Performed By: #### 5 0608 #### [facility] [address] [facility]. [address] COMP METABOLIC PANELon 10-06 Albumin [Mass/Vol] 4.4 g/dL Normal 3.5-5.7 [facility] Comment on above: Performed By: #### 0 0121, 66866 #### [facility] [address] [facility]. [address] ALKALINE PHOSPH 41 IU/L Normal 34-104 [facility] Comment on above: Performed By: #### 0 0121, 47190 #### [facility] [address] [facility]. [address] ALT [Catalytic activity/Vol] 5 U/L Low 7-52 [facility] Comment on above: Performed By: #### 0 0121, 83437 #### [facility] [address] [facility]. [address] AST [Catalytic activity/Vol] 9 U/L Low 13-39 [facility] Comment on above: Performed By: #### 0 0121, 41951 #### [facility] [address] [place] [address], [place] Bilirubin [Mass/Vol] 0.5 mg/dL Normal 0.3-1.[address] [facility] Comment on above: Performed By: #### 0 0121, 05325 #### [facility] [address] [place] [address], [place] Calcium [Mass/Vol] 8.9 mg/dL Normal 8.6-10.3 [facility] Comment on above: Performed By: #### 0 0121, 93606 #### [facility] [address] [place] [address], [place] Chloride [Moles/Vol] 106 mmol/L Normal 98-107 [facility] Comment on above: Performed By: #### 0 012, 37690 #### [facility] [address] [place] [address], [place] CO2 [Moles/Vol] 28 mmol/L Normal 21-31 [facility] Comment on above: Performed By: #### 0 012, 98265 #### [facility] [address] [place] [address], [place] Creatinine [Mass/Vol] 0.77 mg/dL Normal 0.60-1.20 [facility] Comment on above: Performed By: #### 0 0121, 68391 #### [facility] [address] [place] [address], [place] GFR/1.73 sq M predicted among blacks MDRD (S/P/Bld) [Vol rate/Area] mL/min/{1.73_m2} Normal >60 [facility] Comment on above: Performed By: #### 0 0121, 40175 #### [facility] [address] [place] [address], [facility] GFR/1.73 sq M predicted among non-blacks MDRD (S/P/Bld) [Vol rate/Area] mL/min/{1.73_m2} Normal >60 [facility] Comment on above: Performed By: #### 0 0121, 56061 #### [facility] [address] [place] [address], [place] Glucose [Mass/Vol] 105 mg/dL High 70-100 [facility] Comment on above: Performed By: #### 0 0121, 71405 #### [facility] [address] [place] [address], [place] Potassium [Moles/Vol] 4.2 mmol/L Normal 3.5-5.1 [facility] Comment on above: Performed By: #### 0 012, 60541 #### [facility] [address] [place] [address], [place] Protein [Mass/Vol] 6.5 g/dL Normal 6.0-8.3 [facility] Comment on above: Performed By: #### 0 0121, 09325 #### [facility] [address] [place] [address], [place] Sodium [Moles/Vol] 138 mmol/L Normal 136-145 [facility] Comment on above: Performed By: #### 0 0121, 25123 #### [facility] [address] [place] [address], [place] Urea nitrogen [Mass/Vol] 12 mg/dL Normal 7-25 [facility] Comment on above: Performed By: #### 0 0121, 28013 #### [facility] [address] [place] [address], [place] LIPID PROFILEon 10-07-2019 Cholesterol [Mass/Vol] 234 mg/dL High 120-200 [facility] Comment on above: Result Comment: CHOL ESTEROL REFERENCE RANGE: 20 YEARS AND OLDER CARDIOVASCULAR RISK Less than 200 mg/dl Low Risk 200 to 239 mg/dl Borderline Risk 240 mg/dl and greater High Risk Performed By: #### 0 0121, 11724 #### [facility] [address] [place] [address], [facility] Cholesterol in HDL [Mass/Vol] 71 mg/dL Normal 23-92 [facility] Comment on above: Result Comment: Slig ht variation in normal range could be due to gender and/or age. HDL CHOLESTEROL REFERENCE RANGE: 20 years and older Cardiovascular Risk > or =60 mg/dL Desirable 40 TO 59 mg/dL Low Risk <40 mg/dL High Risk Performed By: #### 0 [id number], [id number] #### [facility] [address] [place] [address], [facility] Cholesterol in LDL [Mass/Vol] 151 mg/dL High 0-[address] [facility] Comment on above: Result Comment: LDL IS A CALCULATION LDL IS ONLY VALID IF THE TRIG IS LESS THAN 400. Performed By: #### 0 [id number], [id number] #### [facility] [address] [place] [address], [facility] Cholesterol.total/C holesterol in HDL [Mass ratio] 3.3 {ratio} Normal 0.0-4.[address] [facility] Comment on above: Performed By: #### 0 [id number], [id number] #### [facility] [address] [place] [address], [place] NON-HDL CHOLESTEROL 163 mg/dL Normal [facility] Comment on above: Performed By: #### 0 [id number], [id number] #### [facility] [address] [place] [address], [place] Triglyceride [Mass/Vol] 59 mg/dL Normal 40-149 [facility] Comment on above: Result Comment: TRIG LYCERIDE REFERENCE RANGE: 20 YEARS AND OLDER CARDIOVASCULAR RISK LESS THAN 150 mg/dl LOW RISK 150 TO 199 mg/dl BORDERLINE RISK 200 mg/dl AND GREATER HIGH RISK Performed By: #### 0 [id number], [id number] #### [facility] [address] [place] [address], [facility] VLDL CHOL 12 mg/dL Normal 0-40 [facility] Comment on above: Performed By: #### 0 [id number], [id number] #### [facility] [address] [place], [place] [address] MRI KNEE WO CONTRAST RIGHTon 09-27-2019 MRI KNEE WO CONTRAST RIGHT [facility] Department of Radiology [address] [place] [address] ===== Patient Name: MANOLO FAN : 1975 Sex: F Age: Race: White Pt. Location: [facility] Patient Status: D Ordered Date: 09/14/2019 12:20:00 PM Completed Date: 09/27/2019 11:36 AM Requesting Provider: JD ARAUJO Attending Provider: JD ARAUJO Report Copy To: JD ARAUJO Signs & Symptoms: S83.206A Unsp tear of unsp meniscus, current injury, right knee, init I10 History: [place] [facility] surg, laser drilled through eye, no implants or drains PER Elinor Miller at [employer] [phone] no pc required [id number] 09/15 kw No to all COVID questions - jlr Comments: Please Evaluate Exam: MRI KNEE WO CONTRAST RIGHT ===== MRI KNEE WO CONTRAST RIGHT 09/27/2019 11:36 AM CLINICAL INDICATIONS: S83.206A Unsp tear of unsp meniscus, current injury, right knee, init I10 TECHNOLOGIST COMMENTS: right knee pain s/p twisting injury QUESTION FOR THE RADIOLOGIST: Please Evaluate PROTOCOL: Images were obtained in the following sequences: 3-plane localizer, axial PD fat-sat, sagittal PD fat-sat, sagittal GRE, coronal PD fat-sat, and coronal T1. COMPARISON: None. FINDINGS: Cruciate ligaments: PCL is intact. There is increased signal in the ACL with thinning at the origin. This is indicative of injury related to recent twisting. A few fibers do appear to be intact. The integrity of these fibers cannot be assessed on static imaging. Please correlate with physical examination. Collateral ligaments: MCL and LCL are intact Menisci: No meniscal tear Extensor mechanism: Is intact. Quadriceps insertion onto the patella is normal. Patellar tendon has normal signal appearance. The small amount of infrapatellar deep bursal fluid is noted. This is nonspecific. Bursitis is not excluded. There is no prepatellar bursal fluid. The patella is slightly subluxed laterally. There is thickening of the lateral patellar retinaculum. 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 Fluid: No concerning joint effusion or Vazquez's cyst. No prepatellar bursal fluid. Bones: Marrow signal the visualized femur, proximal tibia and fibula is normal. No occult fracture, healing fracture or AVN. No patellar fracture. No bone contusions. No subchondral fracture. Patellofemoral cartilage: Is intact Medial compartment cartilage: Is intact Lateral compartment cartilage: Is intact Semimembranosus insertional tendinopathy is noted. Incidental small size capsular or synovial cyst related to the tibiofibular joint posteriorly is noted. This is of doubtful clinical significance. IMPRESSION: 1. Thinning and increased signal in the ACL is compatible with injury. On imaging there is no complete transection. Please note the integrity of the remaining fibers cannot be assessed on static imaging please correlate with physical examination. 2. Lateral subluxation of the patella is appreciated with thickening of the lateral patellar retinaculum. This indicates a chronic patellar tracking abnormality. At this time there is no significant chondromalacia. Electronically signed: Veena Bach. Transcribed by: [email or web address], User Resident: Electronically Signed by: VEENA BACH @ 09/28/2019 09:29 AM Normal [facility] Comment on above: Order Comment: Ketty shea Evaluate Encounters Encounter Date Encounter Type Care Provider Facility Start: 02-29-2024 End: 02-29-2024 ambulatory LENA Analisa [facility] Start: 01-11-2024 End: 01-11-2024 ambulatory Anjel Escamilla MD Facility:[facility] Start: 05-05-2023 End: 05-05-2023 ambulatory BURKETT Analisa [facility] Start: 01-14-2023 End: 01-14-2023 ambulatory [facility] Start: 12-31-2022 End: 01-01-2023 ambulatory [facility] Start: 09-10-2022 End: 09-10-2022 ambulatory [facility] Start: 05-20-2022 End: 05-20-2022 ambulatory [facility] Start: 05-07-2022 End: 05-08-2022 ambulatory [facility] Start: 04-22-2022 ambulatory [facility] Start: 04-22-2022 End: 04-22-2022 ambulatory [facility] Start: 04-22-2022 End: 04-22-2022 Encounter for general adult medical examination without abnormal findings [facility] Payers Date Payer Category Payer Unknown 2022 Unknown [id number] 1975 Unknown [id number] 1975 Unknown [id number] [id number]. [id number] 1975 Unknown [id number] 2.16. [id number] 1975 Unknown [id number] [id number] 1975 Unknown [id number] [id number] Progress note 09-10-2022 Note Date & Type Note Facility 09-10-2022 Note -------- Attestation signed by Jd Araujo MD at 09/10/2022 4:34 PM By using the attestations below, the signing clinician agrees that I have read and verify that the documentation has been personally reviewed by me and ensure that the documentation accurately reflects the encounter. Office Visit Attestation GC: I personally saw this patient on the day of the encounter, performed the pedersen portion(s) of the service and participated in the management and confirm the resident's documentation. Please note there may be an additional personal documentation from me. -------- Subjective Chief Complaint: Right ear fullness HPI: Manolo Fan is a 47 y.o. female who presents for one week of right ear fullness. States that over the last month even it has been intermittently giving her issues and that while it used to resolve quickly, now over the last few days the right ear is becoming more of an issue. She states it feels full like as if she was on a plane, like pressure, she states. She denies any fevers, chills, drainage, vision or hearing changes, sore throat, or cough. No other signs of infection. She does use Q-tips a lot she states. She has always had issues/ is sensitive about her ears. Other issues: None No past medical history on file. Past Surgical History: 08/12/2017: US GUIDED PERCUTANEOUS BIOPSY PANCREAS Comment: US GUIDED PERCUTANEOUS BIOPSY PANCREAS GREENE CONVERSION Sulfamethoxazole-trimethoprim and Phelps seed Current Outpatient Medications Medication Instructions carbamide peroxide (Debrox) 6.5 % otic solution 5 drops, Right Ear, 2 times daily loratadine (CLARITIN ORAL) oral, As needed Review of Systems Review of Systems Constitutional: Negative for chills, fatigue and fever. HENT: Positive for ear pain (RIGHT). Negative for sore throat. Eyes: Negative for visual disturbance. Respiratory: Negative for cough, chest tightness and shortness of breath. Cardiovascular: Negative for chest pain, palpitations and leg swelling. Gastrointestinal: Negative for abdominal pain, constipation, diarrhea, nausea and vomiting. Genitourinary: Negative for dysuria and hematuria. Skin: Negative for pallor and rash. Neurological: Negative for dizziness, light-headedness and headaches. Psychiatric/Behavioral: Negative for behavioral problems and confusion. The patient is not nervous/anxious. Objective Lab Results Component Value Date/Time WBC 7.87 04/22/2022 1635 WBC 4.71 10/07/2019 1043 HGB 12.9 04/22/2022 1635 HGB 12.1 10/07/2019 1043 PLT 293 04/22/2022 1635 PLT 267 10/07/2019 1043 NA 138 04/22/2022 1635 K 3.9 04/22/2022 1635 CREATININE 0.77 04/22/2022 1635 BUN 11 04/22/2022 1635 BUN 12 10/07/2019 1043 AST 20 04/22/2022 1635 AST 9 (L) 10/07/2019 1043 ALT 16 04/22/2022 1635 ALT 5 (L) 10/07/2019 1043 CHOL 217 (H) 04/22/2022 1635 CHOL 234 (H) 10/07/2019 1043 HDL 81 04/22/2022 1635 HDL 71 10/07/2019 1043 LDL 136 04/22/2022 1635 LDL 151 (H) 10/07/2019 1043 LDL 163 10/07/2019 1043 Lab Results Component Value Date WBC 7.87 04/22/2022 HGB 12.9 04/22/2022 HCT 39.6 04/22/2022 MCV 88.0 04/22/2022 PLT 293 04/22/2022 Lab Results Component Value Date GLUCOSE 80 04/22/2022 CALCIUM 9.2 04/22/2022 NA 138 04/22/2022 K 3.9 04/22/2022 CO2 28 04/22/2022 CL 103 04/22/2022 BUN 11 04/22/2022 CREATININE 0.77 04/22/2022 Lab Results Component Value Date ALT 16 04/22/2022 AST 20 04/22/2022 ALKPHOS 56 04/22/2022 BILITOT 0.6 04/22/2022 No results found for: HGBA1C Lab Results Component Value Date CHOL 217 (H) 04/22/2022 CHOL 234 (H) 10/07/2019 Lab Results Component Value Date HDL 81 04/22/2022 HDL 71 10/07/2019 Lab Results Component Value Date LDLCALC 124 04/22/2022 Lab Results Component Value Date TRIG 62 04/22/2022 TRIG 59 10/07/2019 No components found for: CHOLHDL Physical Exam Visit Vitals BP 95/60 (BP Location: Right arm, Patient Position: Sitting, BP Cuff Size: Adult) Pulse 90 Temp 36.7 ???C (98.1 ???F) (Tympanic) Physical Exam Vitals reviewed. Constitutional: General: She is not in acute distress. Appearance: Normal appearance. She is not ill-appearing, toxic-appearing or diaphoretic. HENT: Head: Normocephalic and atraumatic. Right Ear: There is impacted cerumen (significant). Eyes: General: No scleral icterus. Extraocular Movements: Extraocular movements intact. Cardiovascular: Rate and Rhythm: Normal rate and regular rhythm. Pulses: Normal pulses. Heart sounds: Normal heart sounds. No murmur heard. No friction rub. No gallop. Pulmonary: Effort: Pulmonary effort is normal. Breath sounds: Normal breath sounds. No stridor. No wheezing, rhonchi or rales. Abdominal: General: Bowel sounds are normal. There is no distension (more content not included)... [facility] Progress note 05-20-2022 Note Date & Type Note Facility 05-20-2022 Note Subjective Patient ID: Manolo Fan is a 47 y.o. female who presents for follow up (Pt here lab follow up. ) and Diarrhea. Manolo is a very pleasant 47-year-old white female who comes in today for a follow-up visit. I went over her labs and her CT scan. I did not find anything significant that could be contributing to her persistent weight loss. I did talk to her about her symptoms. She tells me she is getting anywhere from 8-12 diarrhea stools per day. And she vomits 2-3 times a day. She states that if she does not eat she does not get the diarrhea. Usually she feels better after she vomits. She did not get a mammogram and we talked once again about getting her Pap smear and stuff. Review of Systems Constitutional: No fevers/Chills, no recent weight gain or weight loss. No fatigue. Eyes: No visual changes or diplopia. ENT: No Headaches, hearing loss or vertigo. Cardiovascular: Denied chest Pain, orthopnea, PND Respiratory: No cough or wheezing, no sputum production. No hematemesis. Gastrointestinal: No abdominal pain, No Nausea, Vomiting, Constipation, Diarrhea Genitourinary: No dysuria, or hematuria. Musculoskeletal: No gait disturbance, weakness or joint complaints. Integumentary: No rash or pruritis. Neurological: No Headache, No Hx CVA/TIA Psychiatric: No anxiety, or depression. Endocrine: No temperature intolerance. Hematologic/Lymphatic: No abnormal bruising or bleeding Objective Physical Exam VITALS: BP 111/75 (BP Location: Right arm, Patient Position: Sitting, BP Cuff Size: Adult) Pulse 85 Temp 36.4 ???C (97.5 ???F) (Tympanic) Resp 12 Ht 1.626 m (5' 4 ) Wt 45.8 kg (101 lb) SpO2 97% BMI 17.34 kg/m??? General: alert and oriented x3, No acute distress HEENT: PERRLA,,No lymphadenopathy, normal appearance of eyes, ears, nose, trachea midline.Throat is clear. Neck was supple. Cardiovascular: Regular rate and rhythm normal S1-S2 no S3 or S4 auscultated, no murmur, no edema Pulmonary: Clear to auscultation without rales rhonchi wheezes,Good respiratory effort Abdominal: soft, non-tender, non-distended, +BS, no hernias Neurologic: Cranial nerves II through XII are grossly intact, no overt deficits Extremities: No edema noted. Skin: No rashes, erythema, or bruising Lymph: No enlarged Lymph nodes Psychiatric: normal affect, normal mentation Lab Results Component Value Date CHOL 217 (H) 04/22/2022 TRIG 62 04/22/2022 HDL 81 04/22/2022 LDL 136 04/22/2022 Lab on 04/22/2022 Component Date Value Ref Range Status Sodium 04/22/2022 138 136 - 145 mmol/L Final Potassium 04/22/2022 3.9 3.5 - 5.1 mmol/L Final Chloride 04/22/2022 103 98 - 107 mmol/L Final CO2 04/22/2022 28 21 - 31 mmol/L Final Anion Gap 04/22/2022 7 7 - 20 mmol/L Final BUN 04/22/2022 11 7 - 25 mg/dL Final Creatinine 04/22/2022 0.77 0.60 - 1.20 mg/dL Final BUN/Creatinine Ratio 04/22/2022 14.29 Final Glucose 04/22/2022 80 70 - 100 mg/dL Final Calcium 04/22/2022 9.2 8.6 - 10.3 mg/dL Final AST 04/22/2022 20 13 - 39 U/L Final ALT (SGPT) 04/22/2022 16 7 - 52 U/L Final Alkaline Phosphatase 04/22/2022 56 34 - 104 U/L Final Total Protein 04/22/2022 6.5 6.0 - 8.3 g/dL Final Albumin 04/22/2022 4.3 3.5 - 5.7 g/dL Final Total Bilirubin 04/22/2022 0.6 0.3 - 1.0 mg/dL Final eGFR 04/22/2022 92.2 >60.0 mL/min/1.73m*2 Final [facility]???s estimated glomerular filtration rate (eGFR) will no longer include consideration of race in its calculation. The National Kidney Foundation???s eGFR Task Force developed new recommendations for the estimation of the glomerular filtration rate in the [place] They recommend immediate implementation of the new equation refit without the race variable in all laboratories because the calculation does not include race. In addition to not including race in the calculation and reporting, it included diversity in its development, and has acceptable performance characteristics and potential consequences that do not disproportionately affect any one group of individuals. Vit D, 25-Hydroxy 04/22/2022 53.0 30.0 - 80.0 ng/mL Final >80.0 Toxicity possible Auto WBC 04/22/2022 7.87 4.00 - 10.60 10*3/uL Final RBC 04/22/2022 4.50 3.80 - 5.00 10*6/uL Final Hemoglobin 04/22/2022 12.9 12.0 - 15.0 g/dL Final Hematocrit 04/22/2022 39.6 36.0 - 48.0 % Final MCV 04/22/2022 88.0 82.0 - 98.0 fL Final MCH 04/22/2022 28.7 27.0 - 33.0 pg Final MCHC 04/22/2022 32.6 32.0 - 35.0 g/dL Final RDW 04/22/2022 14.5 11.5 - 15.0 % Final Neutrophils Relative 04/22/2022 64.7 40.0 - 72.0 % Final Lymphocytes Relative 04/22/2022 26.6 20.0 - 45.0 % Final Monocytes Relative 04/22/2022 6.5 5.0 - 12.0 % Final Eosinophils Relative 04/22/2022 1.0 0.0 - 6.0 % Final Basophils Relative 04/22/2022 0.9 0.0 - 1.0 % Final Neutrophils Absolute 04/22/2022 5.10 1.60 - 7.60 10*3/uL Final Lymphocytes Absolute 04/22/2022 2.09 1.20 - 4.00 10*3/uL Final Monocytes Absolute 03/31 (more content not included)... [facility] Progress note 05-07-2022 Note Date & Type Note Facility 05-07-[address] is normal. Follow up as scheduled [facility] Progress note 04-22-2022 Note Date & Type Note Facility 04-22-2022 Note Subjective : Chief Complaint: Manolo Fan is an 47 y.o. female here for an annual wellness visit. This is a 47-year-old white female who comes in today for annual visit. She states that she has been losing weight and she is unable to maintain her weight. Since our last office visit she is lost about 14 pounds. She states that she eats but she is unable to maintain the weight. She does admit to having diarrhea. She has had diarrhea in the past and they thought it was related to some of the oils that she was using for her foods. Currently her BMI is down to 16.99. And her weight at home is 94 pounds.She does not exercise regularly but she is under a lot of stress with work. She is a heavy smoker. She is been smokingPack per day for greater than 20 years with quitting periodically.She had a colonoscopy done last year with did not show any significant evidence of abnormalities.We also did an ultrasound back in 2018 which showed no evidence of lesions on the pancreas or gallbladder.She does not want to get a mammogram. And she has not had cervical cancer screening in 8 years. She refuses to get these done. Comprehensive Medical and Social History There is no problem list on file for this patient. No past medical history on file. Past Surgical History: Procedure Laterality Date US GUIDED PERCUTANEOUS BIOPSY PANCREAS 08/12/2017 US GUIDED PERCUTANEOUS BIOPSY PANCREAS GREENE CONVERSION Allergies Allergen Reactions Sulfamethoxazole-Trimethoprim Diarrhea Cerner Allergy Text Annotation: Bactrim Phelps Seed Diarrhea Social History Socioeconomic History Marital status: Single Spouse name: None Number of children: None Years of education: None Highest education level: None Occupational History None Tobacco Use Smoking status: Every Day Types: Cigarettes Smokeless tobacco: Never Vaping Use Vaping Use: Every day Substances: THC Substance and Sexual Activity Alcohol use: Yes Comment: szometimes wine. Drug use: Yes Types: Marijuana Sexual activity: None Other Topics Concern None Social History Narrative None Social Determinants of Health Financial Resource Strain: Low Risk Difficulty of Paying Living Expenses: Not hard at all Food Insecurity: No Food Insecurity Worried About Running Out of Food in the Last Year: Never true Ran Out of Food in the Last Year: Never true Transportation Needs: No Transportation Needs Lack of Transportation (Medical): No Lack of Transportation (Non-Medical): No Physical Activity: Inactive Days of Exercise per Week: 0 days Minutes of Exercise per Session: 0 min Stress: Stress Concern Present Feeling of Stress : To some extent Social Connections: Moderately Isolated Frequency of Communication with Friends and Family: More than three times a week Frequency of Social Gatherings with Friends and Family: More than three times a week Attends Gnosticist Services: Never Active Member of Clubs or Organizations: No Attends Club or Organization Meetings: Never Marital Status: Living with partner Intimate Partner Violence: Not At Risk Fear of Current or Ex-Partner: No Emotionally Abused: No Physically Abused: No Sexually Abused: No Housing Stability: Low Risk Unable to Pay for Housing in the Last Year: No Number of Places Lived in the Last Year: 1 Unstable Housing in the Last Year: No Social Behavioral History: Diet and Nutrition: healthy diet Fracture Risk: no history of fractures and history of fracture Physical Activity: does not exercise on a regular basis and decreased physical activity Mental Status: Depression Risk: never feels sad, empty or tearful, no loss of interest in activities, and no significant changes in weight Orientation: no disorientation to time , no disorientation to date , and no disorientation to place Concentration and Memory: no decreased concentrating ability Speech and Motor: no speech difficulties , no difficulty expressing formulated concepts , and no difficulty with fine manipulative tasks Functionality Ability: Hearing: no loss of hearing Vision: no vision problems ADL: able to bathe with limited or no assistance and able to contol urination and bowels Instrumental ADL: able to do house work with limited or no assistance and able to grocery shop with limited or no assistance Fall Risk Assessment: no frequent falls while walking Home Safety: I have reviewed and reconciled the medication list with the patient today. No current outpatient medications on file. No current facility-administered medications for this visit. Review of Systems Constitutional: No fevers/Chills, no recent weight gain or weight loss. No fatigue. Eyes: No visual changes or diplopia. ENT: No Headaches, hearing loss or vertigo. Cardiovascular: Denied chest Pain, orthopnea, PND Respiratory: No cough or wheezing, no sputum production. No hematemesis. Gastrointestinal: No abd (more content not included)... [facility] Summary Purpose Family History No Family History Records FoundNo Family History Records FoundNo Family History Records FoundNo Family History Records FoundNo Family History Records FoundNo Family History Records Found Advance Directives No Advanced Directives Records FoundNo Advanced Directives Records FoundNo Advanced Directives Records FoundNo Advanced Directives Records FoundNo Advanced Directives Records FoundNo Advanced Directives Records Found Additional Source Comments INFORMATION SOURCE (unrecogn ized section and content) DATE CREATED AUTHOR 10/14/2019 [facility] DATE CREATED AUTHOR AUTHOR'S ORGANIZ ATION 05/30/2022 [facility] DATE CREATED AUTHOR AUTHOR'S ORGANIZ ATION 09/11/2022 [facility] DATE CREATED AUTHOR AUTHOR'S ORGANIZ ATION 01/29/2023 [facility] DATE CREATED AUTHOR AUTHOR'S ORGANIZ ATION 01/27/2024 [facility] DATE CREATED AUTHOR AUTHOR'S ORGANIZ ATION 03/02/2024 [facility] FOR RECORDS PERTAINING TO PATIENTS WHO ARE OR HAVE BEEN ENROLLED IN A CHEMICAL DEPENDENCY/SUBSTANCEABUSE PROGRAM, SOME INFORMATION MAY BE OMITTED. This clinical summary was aggregated from multiple sources. Caution should be exercised in using it in the provision of clinical care. This summary normalizes information from multiple sources, and as a consequence, information in this document may materially change the coding, format and clinical context of patient data. In addition, data may be omitted in some cases. CLINICAL DECISIONS SHOULD BE BASED ON THE PRIMARY CLINICAL RECORDS. [facility] [employer] [facility]. provides no warranty or guarantee of the accuracy or completeness of information in this document.
--- NOTE | 2024-06-01 08:14 | P.CN_ITS ---
Consult Note: HPI Data of Consult Patient: known to practice within the last 3 years Requesting Physician: Diana Xie NP Primary Care Provider: Non-Staff Physician, MD Consult Narrative Reason for consult: f/u Narrative: Mae Fan a pleasant 49 year old female presents for evaluation of chronic neck pain. longstanding hx of neck pain and BUE pain secondary to lumbar DDD, lumbar stenosis, and lumbar spondylosis unresponsive to >6 weeks of provider guided HEP, heat, ice, tylenol, and NSAIDs. hx of GI distress with NSAIDs but utilizes advil PRN, baclofen 10-15mg HS PRN with benefit without side effects. Previously underwent bilateral C5-6 TFESI with >80% improvement in pain and functional ability for 3 months. Over the last few weeks patient has noticed increased pain and intermittent numbness to BUE. continues to engage in massage therapy and HEP without significant improvement in pain. cc:: CC: Diana Xie NP Review of Systems ROS Status of ROS 10 or more systems reviewed and unremark able except as noted in history and below Musculoskeletal Reports: neck pain and extremity pain PFSH PFSH Medical History (Updated 06/01/24 @ 08:59 by Diana Xie NP) Glaucoma ?H40.9 - Unspecified glaucoma (ICD-10) Kidney stone ?N20.0 - Calculus of kidney (ICD-10) Surgical History History of eye surgery ?Z98.890 - Other specified postprocedural states (ICD-10) Hx of tonsillectomy ?Z90.89 - Acquired absence of other organs (ICD-10) Meds Home Medications and Allergies Home Medications ?Medication ?Instructions ?Recorded ?Confirmed ?Type diazepam 10 mg tablet (Valium) 10 mg PO .QD 01/11/24 01/11/24 History diazepam 10 mg tablet (Valium) 10 mg PO ONCE #1 tab 06/01/24 Rx gabapentin 300 mg capsule 300 mg PO DAILY #30 caps 06/01/24 Rx Allergies Allergy/AdvReac Type Severity Reaction Status Date / Time ciprofloxacin (From Cipro) Allergy Unknown Verified 12/22/23 11:47 sunflower oil Allergy Unknown Verified 12/22/23 11:47 Exam Constitutional Documenting provider has reviewed patient's vital signs: yes Common normals: no apparent distress, oriented x3, healthy appearing, alert and well nourished General appearance: cooperative HENMT Common normals: normocephalic, hearing grossly normal bilaterally and moist oral mucous membranes Head and scalp: normocephalic Eye Common normals: PERRL Pupil: PERRL Neck & C-Spine Common normals: full ROM General: normal visual inspection Cervical spine: cervical ROM abnormal, pain with cervical ROM, cervical spine tenderness and paracervical muscle tenderness; no paracervical muscle spasm Other: positive spurlings, decreased sensation bilateral C5,6,7 strength 4/5 in BUE positive facet loading bilaterally, increased pain over C4-6 facets Chest Common normals: inspection of chest normal Respiratory Common normals: normal respiratory effort, no retractions and no use of accessory muscles Neuro Common normals: oriented x3, CN's II-XII intact bilaterally, moves all extremities, no focal motor deficits, no sensory deficits noted and deep tendon reflexes 2+ bilaterally Sensorium/orientation: alert Motor exam: strength 5/5 throughout and no movement abnormalities noted Psych Common normals: mental status grossly normal, thought process normal, cooperative, affect normal, speech normal and activity/motor behavior normal Speech: normal speech Thought process: normal thought process Results Additional Findings Additional findings: If on a controlled substance or opioids, I have checked an [place] report on this patient and there are no aberrancies noted in the prescribing history.??If on a controlled substance or opioid a drug screen was completed and reviewed within the last year, and if there has not been a drug screen completed we ordered one today to monitor higher risk, state monitored pain medication use. As part of providing excellent, safe, comprehensive care, the following was completed at our patient's visit: 1. A medication reconciliation and review to ensure accurate knowledge of current/active medications, including asking our patients to inform us about any [id number] medications or herbal remedies/nutritional supplements/alternative remedies. 2. A review to specifically ensure our patients have had annual screening for screening for depression, screening for tobacco use, and screening for unhealthy alcohol use. For concerning screenings had a discussion with the patient, provided patient education, and recommended follow-up with primary care provider when appropriate. If patient noted with a risk of falling, they received education on strength, gait, and balance training to prevent future risk of falling. Portions of this note may have been carried over from the previous visit and updated as appropriate. Please note this office utilizes paper charting in addition to the electronic medical record. A list of current medications, vitals, and PMH is available there as the clinical staff outside of myself do not have access to [employer] charting during the clinic day operations. As part of providing quality comprehensive care the current medications, vitals, and PMH were reviewed in the paper chart. Assessment and Plan Assessment and Plan (1) Cervical radiculopathy: Assessment and Plan: The patient has had over 3 months of moderate to severe neck and BUE pain with functional impairment and inadequate response to conservative care including NSAIDS (unless there are contraindication such as concurrent blood thinners), multiple oral or topical pain medications, and home exercise program/physical therapy.? Patient has completed >6 weeks of guided home exercise program and/or formal physical therapy program without relief of their symptoms.? I have reviewed the imaging of the cervical spine and no red flags were identified.? The imaging reveals radiographic findings consistent with cervical DDD, cervical stenosis, cervical spondylosis The Oswestry Disability Index was completed, and the patient scored a 29%.? The patient noted the following:?? moderate to severe pain, pain impacting ADLs, social life, sleep, and travel ? (2) Cervical spinal stenosis: (3) Degenerative disc disease, cervical: (4) Cervical spondylosis: (5) Myalgia, other site: Plan repeat bilateral C5-6 TFESI under fluoroscopy, previous injection provided >50% improvement for 3 months. 10mg PO valium ordered to be taken 30-60 mins prior to procedure due to anxiety and discomfort tolerating previous procedures. continue massage therapy and HEP as tolerated, PT for cervical stabilization defer additional imaging and NS consultation at this time as pt finds benefit to interventional therapy start gabapentin 300mg HS f/u after procedure
== END 2024-06-01 07:46 | disposition home or self-care (01) ==
PROVIDERS: Visit Provider Nurse Practitioner
DX: M54.12 Radiculopathy, cervical region (principal); M48.02 Spinal stenosis, cervical region; M50.30 Other cervical disc degeneration, unspecified cervical region; M47.812 Spondylosis without myelopathy or radiculopathy, cervical region; M79.18 Myalgia, other site
CPT/HCPCS: G0463

== ENCOUNTER 2024-06-20 07:45 | Day surgery (SDC) | payer OTHER, SELFPAY ==
--- OUTSIDE RECORDS SUMMARY | 2024-06-20 07:54 | XMS_ITS | CCD ---
Author Organization [facility] Inform ion Partnership [facility] Care Team Providers Care Order Booker Name Role Phone JD ARAUJO Attending Unavailable [...] Trimethoprim; Translations: [SULFAMETHOXAZOLE-TR IMETHOPRIM] Drug Allergy 3 [facility] Repository (2 sources) sunflower seed extract; Translations: [SUNFLOWER SEED] Drug Allergy 3 [facility] Repository (1 source) Sulfamethoxazole / Trimethoprim; Translations: [Bactrim] Drug Allergy [facility] Repository (1 source) Ciprofloxacin; Translations: [CIPROFLOXACIN] Drug [...] 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 Performed By: #### H PVH #### [facility] [employer] [address] [place], [place] [id number] Electronic Publisher: Abundio Julien MD HPV Type [address] [facility] Comment on above: Performed By: #### H PVH #### [employer] [address] [place] [address] [id number] Electronic Publisher: Abundio Julien MD HPV Type [address] [facility] Comment on above: Performed By: #### H PVH #### [employer] [address] [place] [address] [id number] Electronic Publisher: Abundio Julien MD Other High Risk HPV Not detected Normal [facility] Comment on above: Performed By: #### H PVH #### [address] [id number] Electronic Publisher: Abundio Julien MD HPV DNA High Riskon 01-02-20 23 HPV Sample .THIN PREP Normal [facility] Comment on above: Performed By: #### H PVH #### [address] [id number] Electronic Publisher: Abundio Julien MD Source CERVICAL MATERIAL Normal [facility] Comment on above: Performed By: #### H PVH #### [address] [id number] Electronic Publisher: Abundio Julien MD Cytology Reporton 12-31-2022 Cytology report Cyto stain.thin prep Doc (Cvx/Vag) (NOTE) Path Number: [id number] DIAGNOSIS Imaged ThinPrep Pap - Cervical (1 [...] or for other forensic purposes. Performed at [facility], [address] [place] [address] [id number] . Source of Specimen: A: Imaged ThinPrep Pap - Cervical (1 monolayer slide) HPV Reflex?................ 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 [place], [place] [address] Normal [facility] Estradiolon 12-31-2022 Estradiol 370.0 pg/mL Normal [facility] Comment on above: Result Comment: FEMALES: Normally menstruating Luteal phase 60-232 Follicular phase 31-90 Midcycle phase 60-533 Postmenopausal (untreated) <138 Fulvestrant treatment will show an increased estradiol concentration with this methodology. Alternate methodologies are available upon request. Performed By: #### F , E2 #### [address] [address] Electronic Publisher: Abundio Julien MD Follicle Stim. Hormon 2022 Follicle Stim. Horm 16.8 mIU/mL Normal [facility] Comment on above: Result Comment: Refe rence Range: Male: 1.5-12.4 Ovulating Female: Follicular Phase 3.5-12.5 Ovulation Phase 4.7-21.5 Luteal Phase 1.7-7.7 Postmenopausal Female: 25.8-134.8 Performed By: #### F SH, E2 #### [facility] [employer] [address] [place] [address] Electronic Publisher: Abundio Julien MD Office Visiton 09-10-2022 Follow-up visit [id number] Manolo Fan 1975 F Date Provider Department Center 09/10/2022 [facility] Comprehensiv No family history on file Level of Service:32534 AR OFFICE/OUTPATIENT ESTABLISHED LOW MDM 20-29 MIN (GC) Reason for Visit and Comments: ear infection [Other] - Right ear started a few weeks ago. Normal [facility] CBC WITH DIFFon 05-28-2022 ABS BASOPHIL 0.08 x10^3ul Normal (0.00 - 0.16) [facility] Comment on above: Order Comment: 4ACIL ITY: [facility] - SECOR FACILITY: [facility] - [facility] [id number] Performed By: #### C BC/D, CHEM-C, CELIC4, ESRCRP, TSHFX, IGA, LIP #### [facility] [address] [facility], [address] ABS EOSINOPHIL 0.05 x10^3ul Normal (0.00 - 0.40) [facility] Comment on above: Order Comment: 4ACIL ITY: [facility] - SECOR FACILITY: [facility] - [facility] [id number] Performed By: #### C BC/D, CHEM-C, CELIC4, ESRCRP, TSHFX, IGA, LIP #### [facility] [address] [facility], [address] ABS IMMATURE GRANS 0.03 x10^3ul Normal (0.00 - 0.11) [facility] Comment on above: Order Comment: 4ACIL ITY: [facility] - SECOR FACILITY: [facility] - [facility] [id number] Performed By: #### C BC/D, CHEM-C, CELIC4, ESRCRP, TSHFX, IGA, LIP #### [facility] [address] [facility], [address] ABS LYMPHOCYTE 1.79 x10^3ul Normal (0.96 - 5.40) [facility] Comment on above: Order Comment: 4ACIL ITY: [facility] - SECOR FACILITY: [facility] - [facility] [id number] Performed By: #### C BC/D, CHEM-C, CELIC4, ESRCRP, TSHFX, IGA, LIP #### [facility] [address] [facility], [address] ABS MONOCYTE 0.63 x10^3ul Normal (0.10 - 1.00) [facility] Comment on above: Order Comment: 4ACIL ITY: [facility] - SECOR FACILITY: [facility] - [facility] [id number] Performed By: #### C BC/D, CHEM-C, CELIC4, ESRCRP, TSHFX, IGA, LIP #### [facility] [facility], [address] ABS NEUTROPHIL 7.11 x10^3ul High (1.50 - 7.00) [facility] Comment on above: Order Comment: 4ACIL ITY: [facility] - SECOR FACILITY: [facility] - [facility] [id number] Performed By: #### C BC/D, CHEM-C, CELIC4, ESRCRP, TSHFX, IGA, LIP #### [facility] [address] [facility], [address] Basophils/100 WBC (Bld) 0.8 % Normal () [facility] Comment on above: Order Comment: 4ACIL ITY: [facility] - SECOR FACILITY: [facility] [id number] Performed By: #### C BC/D, CHEM-C, CELIC4, ESRCRP, TSHFX, IGA, LIP #### [facility] [address] [facility], [id number] Eosinophils/100 WBC (Bld) 0.5 % Normal () [facility] Comment on above: Order Comment: 4ACIL ITY: [facility] - SECOR FACILITY: [facility] [id number] Performed By: #### C BC/D, CHEM-C, CELIC4, ESRCRP, TSHFX, IGA, LIP #### [facility] [address] [place], [place] [address]or Rd. [facility], [address] Hematocrit (Bld) [Volume fraction] 39.4 % Normal (37.0 - 47.0) [facility] Comment on above: Order Comment: 4ACIL ITY: [facility] - SEC[facility] FACILITY: [facility] [id number] Performed By: #### C BC/D, CHEM-C, CELIC4, ESRCRP, TSHFX, IGA, LIP #### [facility] [address] [place] [address] Rd. [facility], [address] Hemoglobin (Bld) [Mass/Vol] 13.3 g/dL Normal (12.0 - 16.0) [facility] Comment on above: Order Comment: 4ACIL ITY: [facility] - SECOR FACILITY: [facility] [id number] Performed By: #### C BC/D, CHEM-C, CELIC4, ESRCRP, TSHFX, IGA, LIP #### [facility] [address] [facility], [address] IMMATURE GRANS (IG) 0.3 % Normal () [facility] Comment on above: Order Comment: 4ACIL ITY: [facility] - SECOR FACILITY: [facility] [id number] Performed By: #### C BC/D, CHEM-C, CELIC4, ESRCRP, TSHFX, IGA, LIP #### [facility] [address] [facility], [address] LYMPS 18.5 % Normal () [facility] Comment on above: Order Comment: 4ACIL ITY: [facility] - SEC[facility] FACILITY: [facility] [id number] Performed By: #### C BC/D, CHEM-C, CELIC4, ESRCRP, TSHFX, IGA, LIP #### [facility] [address] [facility], [address] MCH (RBC) [Entitic mass] 29.8 pg Normal (27.0 - 33.0) [facility] Comment on above: Order Comment: 4ACIL ITY: [facility] - SECOR FACILITY: [facility] [id number] Performed By: #### C BC/D, CHEM-C, CELIC4, ESRCRP, TSHFX, IGA, LIP #### [facility] [address] [facility], [address] MCHC (RBC) [Mass/Vol] 33.8 g/dL Normal (30.0 - 37.0) [facility] Comment on above: Order Comment: 4ACIL ITY: [facility] - SEC[facility] FACILITY: [facility] [id number] Performed By: #### C BC/D, CHEM-C, CELIC4, ESRCRP, TSHFX, IGA, LIP #### [facility] [address] [facility], [address] MCV (RBC) [Entitic vol] 88.3 fL Normal (81.0 - 99.0) [facility] Comment on above: Order Comment: 4ACIL ITY: [facility] - SEC[facility] FACILITY: [facility] [id number] Performed By: #### C BC/D, CHEM-C, CELIC4, ESRCRP, TSHFX, IGA, LIP #### [facility] [address] [facility], [address] MONOS 6.5 % Normal () [facility] Comment on above: Order Comment: 4ACIL ITY: [facility] [id number] Performed By: #### C BC/D, CHEM-C, CELIC4, ESRCRP, TSHFX, IGA, LIP #### [facility] [address] [place], [address] PLT 312 x10^3ul Normal (130 - 400) [facility] Comment on above: Order Comment: 4ACIL ITY: [facility] - SEC[facility] FACILITY: [facility] [id number] Performed By: #### C BC/D, CHEM-C, CELIC4, ESRCRP, TSHFX, IGA, LIP #### [facility] [address] [place], [address] RBC 4.46 x10^6ul Normal (4.20 - 5.40) [facility] Comment on above: Order Comment: 4ACIL ITY: [facility] [id number] Performed By: #### C BC/D, CHEM-C, CELIC4, ESRCRP, TSHFX, IGA, LIP #### [facility] [address] [place], [address] RDW-SD 49.1 fl High (37.0 - 49.0) [facility] Comment on above: Order Comment: 4ACIL ITY: [facility] - SEC[facility] FACILITY: [facility] [id number] Performed By: #### C BC/D, CHEM-C, CELIC4, ESRCRP, TSHFX, IGA, LIP #### [facility] [address] [place], [address] SEGS 73.4 % Normal () [facility] Comment on above: Order Comment: 4ACIL ITY: [facility] - [facility] FAC[facility]: [facility] [id number] Performed By: #### C BC/D, CHEM-C, CELIC4, ESRCRP, TSHFX, IGA, LIP #### [facility] [address] [place], [address] WBC 9.68 x10^3ul Normal (3.80 - 10.60) [facility] Comment on above: Order Comment: 4ACIL ITY: [facility] - SEC[facility] FACILITY: [facility] - [facility] [id number] Performed By: #### C BC/D, CHEM-C, CELIC4, ESRCRP, TSHFX, IGA, LIP #### [facility] [address] [place], [address] COMP METABOLIC PANEL W/GFRon 05-28-2022 Albumin [Mass/Vol] 4.3 g/dL Normal (3.5 - 5.0) [facility] Comment on above: Performed By: #### C BC/D, CHEM-C, CELIC4, ESRCRP, TSHFX, IGA, LIP #### [facility] [address] [place], [address] ALK PHOS 65 U/L Normal (38 - 126) [facility] Comment on above: Performed By: #### C BC/D, CHEM-C, CELIC4, ESRCRP, TSHFX, IGA, LIP #### [facility] [address] [place], [address] ALT [Catalytic activity/Vol] 16 U/L Normal (1 - 35) [facility] Comment on above: Performed By: #### C BC/D, CHEM-C, CELIC4, ESRCRP, TSHFX, IGA, LIP #### [facility] [address] [place], [address] AST [Catalytic activity/Vol] 22 U/L Normal (15 - 46) [facility] Comment on above: Performed By: #### C BC/D, CHEM-C, CELIC4, ESRCRP, TSHFX, IGA, LIP #### [facility] [address] [place], [address] Bilirubin [Mass/Vol] 0.7 mg/dL Normal (0.2 - 1.3) [facility] Comment on above: Performed By: #### C BC/D, CHEM-C, CELIC4, ESRCRP, TSHFX, IGA, LIP #### [facility] [address] [place], [address] Calcium [Mass/Vol] 9.0 mg/dL Normal (8.6 - 10.6) [facility] Comment on above: Performed By: #### C BC/D, CHEM-C, CELIC4, ESRCRP, TSHFX, IGA, LIP #### [facility] [address] [place], [address] Chloride [Moles/Vol] 105 mmol/L Normal (98 - 107) [facility] Comment on above: Performed By: #### C BC/D, CHEM-C, CELIC4, ESRCRP, TSHFX, IGA, LIP #### [facility] [address] [place], [address] CO2 [Moles/Vol] 23 mmol/L Normal (22 - 30) [facility] Comment on above: Performed By: #### C BC/D, CHEM-C, CELIC4, ESRCRP, TSHFX, IGA, LIP #### [place] [facility] [address] [place], [address] Creatinine [Mass/Vol] 0.63 mg/dL Normal (0.52 - 1.04) [facility] Comment on above: Performed By: #### C BC/D, CHEM-C, CELIC4, ESRCRP, TSHFX, IGA, LIP #### [facility] [address] [place], [address] GFR- AMER 122.6 ML/M1.7 Normal (60.0 - 140.1) [facility] Comment on above: Performed By: #### C BC/D, CHEM-C, CELIC4, ESRCRP, TSHFX, IGA, LIP #### [place] [facility] [address] [place], [address] GFR-NON AFRIC-AMER 101.3 ML/M1.7 Normal (60.0 - 115.8) [facility] Comment on above: Performed By: #### C BC/D, CHEM-C, CELIC4, ESRCRP, TSHFX, IGA, LIP #### [place] [facility] [address] [place], [address] Glucose [Mass/Vol] 100 mg/dL Normal (74 - 106) [facility] Comment on above: Performed By: #### C BC/D, CHEM-C, CELIC4, ESRCRP, TSHFX, IGA, LIP #### [place] [facility] [address] [place], [address] Potassium [Moles/Vol] 4.5 mmol/L Normal (3.5 - 5.1) [facility] Comment on above: Performed By: #### C BC/D, CHEM-C, CELIC4, ESRCRP, TSHFX, IGA, LIP #### [place] [facility] [address] [place], [address] Protein [Mass/Vol] 7.1 g/dL Normal (6.3 - 8.2) [facility] Comment on above: Performed By: #### C BC/D, CHEM-C, CELIC4, ESRCRP, TSHFX, IGA, LIP #### [place] [facility] [address] [place], [address] Sodium [Moles/Vol] 135 mmol/L Low (137 - 145) [facility] Comment on above: Performed By: #### C BC/D, CHEM-C, CELIC4, ESRCRP, TSHFX, IGA, LIP #### [facility] [address] [facility], [address] Urea nitrogen [Mass/Vol] 12 mg/dL Normal (7 - 17) [facility] Comment on above: Performed By: #### C BC/D, CHEM-C, CELIC4, ESRCRP, TSHFX, IGA, LIP #### [facility] [address] [facility], [address] DGP,IGA/IGG + TTG, IGA/IGGon 05-28-2022 ANTI-TTG, IGA 0.9 U/mL Normal (0.0 - 10.0) [facility] in Comment on above: Performed By: #### C BC/D, CHEM-C, CELIC4, ESRCRP, TSHFX, IGA, LIP #### [facility] [address] [facility], [address] ANTI-TTG, IGG 0.7 U/mL Normal (0.0 - 10.0) [facility] in Comment on above: Result Comment: REFERENCE RANGE DEAMIDATED GLIADIN PEPTIDE, IGA & IGG : < 7.0 U/mL = NEGATIVE 7.0 - 10.0 U/mL = BORDERLINE > 10.0 U/mL = POSITIVE REFERENCE RANGE ANTI-TTG, IGA & IGG: < 7.0 U/mL = NEGATIVE 7.0 - 10.0 U/mL = BORDERLINE > 10.0 U/mL = POSITIVE PERFORMED ON [email or web address] [facility] 06-14-2021 Performed By: #### C BC/D, CHEM-C, CELIC4, ESRCRP, TSHFX, IGA, LIP #### [facility] [address] [facility], [address] DEAMIDATED GLIADIN PEPTIDE, IGA 4.1 U/mL Normal (0.0 - 10.0) [facility] Comment on above: Performed By: #### C BC/D, CHEM-C, CELIC4, ESRCRP, TSHFX, IGA, LIP #### [facility] [address] [place], [address] DEAMIDATED GLIADIN PEPTIDE, IGG <0.6 Normal (0.0 - 10.0) [facility] Comment on above: Performed By: #### C BC/D, CHEM-C, CELIC4, ESRCRP, TSHFX, IGA, LIP #### [facility] [address] [place], [address] IgA, TOTALon 05-28-2022 IgA, TOTAL 282 MG/DL Normal (70 - 400) [facility] Comment on above: Performed By: #### C BC/D, CHEM-C, CELIC4, ESRCRP, TSHFX, IGA, LIP #### [facility] [address] [place], [address] LIPASEon 05-28-2022 Lipase [Catalytic activity/Vol] 32 U/L Normal (23 - 300) [facility] Comment on above: Performed By: #### C BC/D, CHEM-C, CELIC4, ESRCRP, TSHFX, IGA, LIP #### [facility] [address] [place], [address] SED RATE - CRPon 05-28-2022 CRP EXTENDED RANGE <0.34 Normal (0.00 - 3.20) [facility] [place] Comment on above: Result Comment: CRP RESULT IS <0.34 MG/L CRP MIN DETECTION = 0.34 MG/L Performed By: #### C BC/D, CHEM-C, CELIC4, ESRCRP, TSHFX, IGA, LIP #### [facility] [address] [place], [address] SED RATE WEST. 6 MM/HR Normal (0 - 25) [facility] Comment on above: Performed By: #### C BC/D, CHEM-C, CELIC4, ESRCRP, TSHFX, IGA, LIP #### [facility] [address] [place], [address] TSH WITH REFLEXon 05-28-2022 REFLEX T4, FREE NO Normal () [facility] Comment on above: Performed By: #### C BC/D, CHEM-C, CELIC4, ESRCRP, TSHFX, IGA, LIP #### [facility] [address] [facility], [address] TSH Qn 0.940 m[IU]/L Normal (0.470 - 4.680) [facility] Comment on above: Performed By: #### C BC/D, CHEM-C, CELIC4, ESRCRP, TSHFX, IGA, LIP #### [facility] [address] [facility], [address] Office Visiton 05-20-2022 Follow-up visit [id number] Manolo Fan 1975 F Date Provider Department Center 05/20/2022 [facility] INT MED Comprehensiv No family history on file Level of Service:97865 AR OFFICE/OUTPATIENT ESTABLISHED MOD MDM 30-39 MIN Reason for Visit and Comments: follow up [Other] - Pt here lab follow up. Diarrhea [35] Normal [facility] CT ABDOMEN PELVIS WO IV CONT [...] reasonably achievable. Electronically signed: Veena Bach. Normal [facility] CBC WITH AUTO DIFFERENTIALon 04-22-2022 Basophils (Bld) [#/Vol] 0.07 10*3/uL Normal 0.00-0.20 [facility] Comment on above: Performed By: #### L [id number] #### [facility] ([facility]AKER) [address] [place] [address] Basophils/100 WBC (Bld) 0.9 % Normal 0.0-1.0 [facility] Comment on above: Performed By: #### L [id number] #### [facility] (BEAKER) [address] [place] [address] Eosinophils (Bld) [#/Vol] 0.08 10*3/uL Normal 0.00-0.50 [facility] Comment on above: Performed By: #### L [id number] #### [facility] (BEAKER) [address] [facility] [address] Eosinophils/100 WBC (Bld) 1.0 % Normal 0.0-6.0 [facility] Comment on above: Performed By: #### L [id number] #### [facility] (BEAKER) [address] [place] [address] Erythrocyte distribution width (RBC) [Ratio] 14.5 % Normal 11.5-15.0 [facility] Comment on above: Performed By: #### L [id number] #### [facility] (BEAKER) [address] [place] [address] ERYTHROCYTE MEAN CORPUSCULAR HEMOGLOBIN CONCENTRATION (G/DL) BY AUTOMATED 32.6 g/dL Normal 32.0-35.0 [facility] Comment on above: Performed By: #### L [id number] #### [facility] (BEAKER) [address] [facility] [address] Hematocrit (Bld) [Volume fraction] 39.6 % Normal 36.0-48.0 [facility] Comment on above: Performed By: #### L [id number] #### [facility] (BEAKER) [address] [place] [address] Hemoglobin (Bld) [Mass/Vol] 12.9 g/dL Normal 12.0-15.0 [facility] Comment on above: Performed By: #### L [id number] #### [facility] [address] [place] [address] Immature granulocytes (Bld) [#/Vol] 0.02 10*3/uL Normal 0.00-0.20 [facility] Comment on above: Performed By: #### L [id number] #### [facility] (BEAKER) [address] [place] [address] Immature granulocytes/100 WBC (Bld) 0.3 % Normal 0.0-1.0 [facility] Comment on above: Performed By: #### L [id number] #### [facility] (BEAKER) [address] [place] [address] Lymphocytes (Bld) [#/Vol] 2.09 10*3/uL Normal 1.20-4.00 [facility] Comment on above: Performed By: #### L [id number] #### [facility] (BEAKER) [address] [place] [address] Lymphocytes/100 WBC (Bld) 26.6 % Normal 20.0-45.0 [facility] Comment on above: Performed By: #### L [id number] #### [facility] (BEAKER) [address] [place] [address] MCH (RBC) [Entitic mass] 28.7 pg Normal 27.0-33.0 [facility] Comment on above: Performed By: #### L [id number] #### [facility] (BEAKER) [address] [place] [address] MCV (RBC) [Entitic vol] 88.0 fL Normal 82.0-98.0 [facility] Comment on above: Performed By: #### L [id number] #### [facility] ([facility]) [address] [place] [address] Monocytes (Bld) [#/Vol] 0.51 10*3/uL Normal 0.10-1.00 [facility] Comment on above: Performed By: #### L [id number] #### [facility] ([facility]) [address] [place] [address] Monocytes/100 WBC (Bld) 6.5 % Normal 5.0-12.0 [facility] Comment on above: Performed By: #### L [id number] #### [facility] ([facility]) [address] [place] [address] Neutrophils (Bld) [#/Vol] 5.10 10*3/uL Normal 1.60-7.60 [facility] Comment on above: Performed By: #### L [id number] #### [facility] ([facility]) [address] [place] [address] Neutrophils/100 WBC (Bld) 64.7 % Normal 40.0-72.0 [facility] Comment on above: Performed By: #### L [id number] #### [facility] ([facility]) [address] [place] [address] NRBC (PER 100 WBCS) BY AUTOMATED COUNT 0.0 % Normal 0.0-0.0 [facility] Comment on above: Performed By: #### L [id number] #### [facility] ([facility]) [address] [place] [address] PLATELETS (10*3/UL) IN BLOOD AUTOMATED COUNT 293 10*3/uL Normal 150-400 [facility] Comment on above: Performed By: #### L [id number] #### [facility] ([facility]) [address] [place] [address] RBC (Bld) [#/Vol] 4.50 10*6/uL Normal 3.80-5.00 [facility] Comment on above: Performed By: #### L [id number] #### [facility] ([facility] [address] [place] [address] WBC (Bld) [#/Vol] 7.87 10*3/uL Normal 4.00-10.60 [facility] Comment on above: Performed By: #### L [id number] #### [facility] ([facility]) [address] [place] [address] CELIAC REFLEX PANELon 2022 IMMUNOGLOBULIN A 230 mg/dL Normal 68-408 [facility] Comment on above: Result Comment: Total IgA is within or higher than established ranges. Tissue Transglutaminase, IgA to follow. REFERENCE INTERVAL: Immunoglobulin A Access complete set of age- and/or gender-specific reference intervals for this test in the [facility] Directory ([employer]). Performed By: [employer] [address] [place] [address] Inletter: Donald Jeronimo MD, PhD Performed By: #### L [id number] #### [facility] ([facility]) [address] [place] [address] COMPREHENSIVE METABOLIC PANE [facility] 04-22-2022 Albumin [Mass/Vol] 4.3 g/dL Normal 3.5-5.[address] [facility] Comment on above: Performed By: #### L [id number] #### [facility] ([facility]) [address] [place] [address] ALP [Catalytic activity/Vol] 56 U/L Normal 34-104 [facility] Comment on above: Performed By: #### L [id number] #### [facility] ([facility]) [address] [place] [address] ALT [Catalytic activity/Vol] 16 U/L Normal 7-52 [facility] Comment on above: Performed By: #### L [id number] #### [facility] ([facility]) [address] [place] [address] Anion gap [Moles/Vol] 7 mmol/L Normal 7-20 [facility] Comment on above: Performed By: #### L [id number] #### [facility] ([facility]) [address] [place] [address] AST [Catalytic activity/Vol] 20 U/L Normal 13-39 [facility] Comment on above: Performed By: #### L [id number] #### [facility] ([facility]) [address] [place] [address] Bilirubin [Mass/Vol] 0.6 mg/dL Normal 0.3-1.0 [facility] Comment on above: Performed By: #### L [id number] #### [facility] ([facility]) [address] [place] [address] Calcium [Mass/Vol] 9.2 mg/dL Normal 8.6-10.[address] [facility] Comment on above: Performed By: #### L [id number] #### [facility] ([facility]) [address] [place] [address] Chloride [Moles/Vol] 103 mmol/L Normal 98-107 [facility] Comment on above: Performed By: #### L [id number] #### [facility] ([facility]) [address] [place] [address] CO2 [Moles/Vol] 28 mmol/L Normal 21-31 [facility] Comment on above: Performed By: #### L [id number] #### [facility] ([facility]) [address] [place] [address] Creatinine [Mass/Vol] 0.77 mg/dL Normal 0.60-1.20 [facility] Comment on above: Performed By: #### L [id number] #### [facility] ([facility]) [address] [place] [address] GLOMERULAR FILTRATION RATE ML/MIN/1.73 SQ M.PREDICTED 92.2 mL/min/1.73m*2 Normal >60.0 [facility] Comment on above: Result Comment: [facility]???s estimated glomerular filtration rate (eGFR) will [...] By: #### L [id number] #### [facility] ([facility]) [address] [place] [address] Glucose [Mass/Vol] 80 mg/dL Normal 70-[address] [facility] Comment on above: Performed By: #### L [id number] #### [facility] [address] [place] [address] Potassium [Moles/Vol] 3.9 mmol/L Normal 3.5-5.1 [facility] Comment on above: Performed By: #### L [id number] #### [facility] [address] [place] [address] Protein [Mass/Vol] 6.5 g/dL Normal 6.0-8.[address] [facility] Comment on above: Performed By: #### L [id number] #### [facility] ([facility]) [address] [place] [address] Sodium [Moles/Vol] 138 mmol/L Normal 136-[address] [facility] Comment on above: Performed By: #### L [id number] #### [facility] ([facility]) [address] [place] [address] Urea nitrogen [Mass/Vol] 11 mg/dL Normal 7-25 [facility] Comment on above: Performed By: #### L [id number] #### [facility] [address] [place] [address] UREA NITROGEN/CREATININE (MASS RATIO) IN SER/PLAS 14.29 Normal [facility] Comment on above: Performed By: #### L [id number] #### [facility] ([facility]) [address] [place] [address] LIPID PANELon 04-22-2022 CHOL/HDL 2.68 mg/dL Normal [facility] Comment on above: Performed By: #### L [id number] #### [facility] ([facility]) [address] [place] [address] Cholesterol [Mass/Vol] 217 mg/dL High 120-200 [facility] Comment on above: Performed By: #### L [id number] #### [facility] ([facility]) [address] [place] [address] Magnesium [Mass/Vol] 62 mg/dL Normal 40-149 [facility] Comment on above: Result Comment: TRIG LYCERIDE REFERENCE RANGE: 20 YEARS AND OLDER CARDIOVASCULAR RISK LESS THAN 150 mg/dL LOW RISK 150 TO 199 mg/dL BORDERLINE RISK 200 mg/dL AND GREATER HIGH RISK Performed By: #### L [id number] #### [facility] ([facility]) [address] [place] [address] Magnesium [Mass/Vol] 124 mg/dL Normal 0-160 [facility] Comment on above: Performed By: #### L [id number] #### [facility] ([facility]) [address] [place] [address] Magnesium [Mass/Vol] 81 mg/dL Normal 23-92 [facility] Comment on above: Performed By: #### L [id number] #### [facility] ([facility]) [address] [place] [address] NON HDL CHOL. (LDL+VLDL) 136 Normal [facility] Comment on above: Performed By: #### L [id number] #### [facility] ([facility]) [address] [place] [address] TOTAL VLDL-C 12 mg/dL Normal 0-40 [facility] Comment on above: Performed By: #### L [id number] #### [facility] ([facility]) [address] [place] [address] Labon 04-22-2022 Lab [id number] Manolo Fan 1975 F Date Provider Department [place] [facility] Comprehensiv No family history on file Normal [facility] Office Visiton 04-22-2022 Follow-up visit [id number] Manolo Fan 1975 F Date Provider Department [facility] 04/22/2022 [facility] Comprehensiv No family history on file Level of Service:81173 [place] PERIODIC PREVENTIVE MED EST PATIENT 40-64YRS Reason for Visit and Comments: weightloss [Other] - Pt has concerns for weight loss since having covid in the past. Normal [facility] TISSUE TRANSGLUTAMINASE, IGA on 04-22-2022 TISSUE TRANSGLUTAMINASE, IGA <2 Normal 0-3 [facility] Comment on above: Result Comment: No [...] positive predictive value for disease. Performed By: [employer] [address] [place] [address] Inletter: Donald Jeronimo MD, PhD Performed By: #### L [id number] #### [employer]) [address] [place] [address] TSH3 REFLEX TO FT4on 023 THYROTROPIN (MIU/L) IN SER/PLAS BY DETECTION LIMIT <= 0.05 MIU/L 1.24 mIU/L Normal 0.34-5.60 [facility] Comment on above: Performed By: #### L [id number] #### [employer]) [address] [place] [address] VITAMIN D 25 HYDROXYon 04-22 CALCIDIOL (25 [place] VITAMIN D3) (NG/ML) IN SER/PLAS 53.0 ng/mL Normal 30.0-80.0 [facility] Comment on above: Result Comment: >80. 0 Toxicity possible Performed By: #### L [id number] #### [facility] ([facility]) [address] [place] [address] CBC COMPLETE BLOOD COUNTon 10-07-2019 Erythrocyte distribution width (RBC) [Ratio] 14.0 % Normal 11.5-15.0 [facility] Comment on above: Performed By: #### 5 0608 #### [facility] [address] [place] [address], [facility] Hematocrit (Bld) [Volume fraction] 37.4 % Normal 36.0-45.0 [facility] Comment on above: Performed By: #### 5 0608 #### [facility] [address] [facility] [place] [address], [facility] Hemoglobin (Bld) [Mass/Vol] 12.1 g/dL Normal 12.0-15.0 [facility] Comment on above: Performed By: #### 5 0608 #### [facility] [address] [place] [address], [facility] MCH (RBC) [Entitic mass] 28.9 pg Normal 27.0-33.0 [facility] Comment on above: Performed By: #### 5 0608 #### [facility] [address] [place] [address], [facility] MCHC (RBC) [Mass/Vol] 32.4 g/dL Normal 32.0-35.0 [facility] Comment on above: Performed By: #### 5 0608 #### [facility] [address] [place] [address], [facility] MCV (RBC) [Entitic vol] 89.5 fL Normal 82.0-98.0 [facility] Comment on above: Performed By: #### 5 0608 #### [facility] [address] [facility] [place], [place] [address] [place] [address] Nucleated RBC/100 WBC (Bld) [Ratio] 0 % Normal 0-0 [facility] Comment on above: Performed By: #### 5 0608 #### [facility] [address] [place] [address], [facility] PLAT CNT 267 10*3/uL Normal 150-400 [facility] Comment on above: Performed By: #### 5 0608 #### [facility] [address] [facility]. [address] RBC (Bld) [#/Vol] 4.18 10*6/uL Normal 3.80-5.00 [facility] Comment on above: Performed By: #### 5 0608 #### [facility] [address] WBC (Bld) [#/Vol] 4.71 10*3/uL Normal 4.00-10.60 [facility] Comment on above: Performed By: #### 5 0608 #### [facility] [address] [facility]. [address] COMP METABOLIC PANELon 10-06 Albumin [Mass/Vol] 4.4 g/dL Normal 3.5-5.7 [facility] Comment on above: Performed By: #### 0 0121, 77787 #### [facility] [address] [facility]. [address] ALKALINE PHOSPH 41 IU/L Normal 34-104 [facility] Comment on above: Performed By: #### 0 0121, 47051 #### [facility] [address] [facility]. [address] ALT [Catalytic activity/Vol] 5 U/L Low 7-52 [facility] Comment on above: Performed By: #### 0 0121, [id number] #### [facility] [address] [facility]. [address] AST [Catalytic activity/Vol] 9 U/L Low 13-39 [facility] Comment on above: Performed By: #### 0 0121, 77485 #### [facility] [address] [place] [address], [place] Bilirubin [Mass/Vol] 0.5 mg/dL Normal 0.3-1.0 [facility] Comment on above: Performed By: #### 0 0121, 73885 #### [facility] [address] [place] [address], [place] Calcium [Mass/Vol] 8.9 mg/dL Normal 8.6-10.3 [facility] Comment on above: Performed By: #### 0 0121, 64717 #### [facility] [address] [place] [address], [place] Chloride [Moles/Vol] 106 mmol/L Normal 98-107 [facility] Comment on above: Performed By: #### 0 012, 73775 #### [facility] [address] [place] [address], [place] CO2 [Moles/Vol] 28 mmol/L Normal 21-31 [facility] Comment on above: Performed By: #### 0 012, 18166 #### [facility] [address] [place] [address], [place] Creatinine [Mass/Vol] 0.77 mg/dL Normal 0.60-1.20 [facility] Comment on above: Performed By: #### 0 0121, 47930 #### [facility] [address] [place] [address], [place] GFR/1.73 sq M predicted among blacks MDRD (S/P/Bld) [Vol rate/Area] mL/min/{1.73_m2} Normal >60 [facility] Comment on above: Performed By: #### 0 0121, 39704 #### [facility] [address] [place] [address], [facility] GFR/1.73 sq M predicted among non-blacks MDRD (S/P/Bld) [Vol rate/Area] mL/min/{1.73_m2} Normal >60 [facility] Comment on above: Performed By: #### 0 0121, 67078 #### [facility] [address] [place] [address], [place] Glucose [Mass/Vol] 105 mg/dL High 70-100 [facility] Comment on above: Performed By: #### 0 0121, 28320 #### [facility] [address] [place] [address], [place] Potassium [Moles/Vol] 4.2 mmol/L Normal 3.5-5.1 [facility] Comment on above: Performed By: #### 0 012, 15027 #### [facility] [address] [place] [address], [place] Protein [Mass/Vol] 6.5 g/dL Normal 6.0-8.3 [facility] Comment on above: Performed By: #### 0 0121, 87379 #### [facility] [address] [place] [address], [place] Sodium [Moles/Vol] 138 mmol/L Normal 136-145 [facility] Comment on above: Performed By: #### 0 0121, 90796 #### [facility] [address] [place] [address], [place] Urea nitrogen [Mass/Vol] 12 mg/dL Normal 7-25 [facility] Comment on above: Performed By: #### 0 0121, 75194 #### [facility] [address] [place] [address], [place] LIPID PROFILEon 10-07-2019 Cholesterol [Mass/Vol] 234 mg/dL High 120-200 [facility] Comment on above: Result Comment: CHOL ESTEROL REFERENCE RANGE: 20 YEARS AND OLDER CARDIOVASCULAR RISK Less than 200 mg/dl Low Risk 200 to 239 mg/dl Borderline Risk 240 mg/dl and greater High Risk Performed By: #### 0 0121, 23226 #### [facility] [address] [place] [address], [facility] Cholesterol in HDL [Mass/Vol] 71 mg/dL Normal 23-92 [facility] Comment on above: Result Comment: Slig ht variation in normal range could be due to gender and/or age. HDL CHOLESTEROL REFERENCE RANGE: 20 years and older Cardiovascular Risk > or =60 mg/dL Desirable 40 TO 59 mg/dL Low Risk <40 mg/dL High Risk Performed By: #### 0 0121, 46174 #### [facility] [address] [place] [address], [facility] Cholesterol in LDL [Mass/Vol] 151 mg/dL High 0-130 [facility] Comment on above: Result Comment: LDL IS A CALCULATION LDL IS ONLY VALID IF THE TRIG IS LESS THAN 400. Performed By: #### 0 0121, 56436 #### [facility] [address] [place] [address], [facility] Cholesterol.total/C holesterol in HDL [Mass ratio] 3.3 {ratio} Normal 0.0-4.5 [facility] Comment on above: Performed By: #### 0 0121, 82853 #### [facility] [address] [facility] [place] [address], [place] NON-HDL CHOLESTEROL 163 mg/dL Normal [facility] Comment on above: Performed By: #### 0 0121, 20040 #### [facility] [address] [place] [address], [place] Triglyceride [Mass/Vol] 59 mg/dL Normal 40-149 [facility] Comment on above: Result Comment: TRIG LYCERIDE REFERENCE RANGE: 20 YEARS AND OLDER CARDIOVASCULAR RISK LESS THAN 150 mg/dl LOW RISK 150 TO 199 mg/dl BORDERLINE RISK 200 mg/dl AND GREATER HIGH RISK Performed By: #### 0 0121, 60240 #### [facility] [address] [place] [address], [facility] VLDL CHOL 12 mg/dL Normal 0-40 [facility] Comment on above: Performed By: #### 0 0121, 39023 #### [facility] [address] [place], [place] [email or web address] MRI KNEE WO CONTRAST RIGHTon 09-27-2019 MRI KNEE WO CONTRAST RIGHT [facility] Department of Radiology [address] [place] [address] ===== Patient Name: MANOLO FAN : 1975 Sex: F Age: Race: White Pt. Location: [facility] Patient Status: D Ordered Date: 09/14/2019 12:20:00 PM Completed Date: 09/27/2019 11:36 AM Requesting Provider: JD ARAUJO Attending Provider: JD ARAUJO Report Copy To: JD ARAUJO Signs & Symptoms: S83.206A Unsp tear of unsp meniscus, current injury, right knee, init I10 History: Kristin Glaucoma surg, laser drilled through eye, no implants or drains PER Elinor Miller at [employer] [phone] no pc required [id number] 09/15 kw No to all COVID questions [...] chondromalacia. Electronically signed: Veena Bach. Transcribed by: [email or web address], User Resident: Electronically Signed by: VEENA BACH @ 09/28/2019 09:29 AM Normal [facility] Comment on above: Order Comment: Ketty shea Evaluate Encounters Encounter Date Encounter Type Care Provider Facility Start: 02-29-2024 End: 02-29-2024 ambulatory LENA Analisa EMILY [facility] Start: 01-11-2024 End: 01-11-2024 ambulatory Anjel Escamilla MD Facility:[facility] Start: 05-05-2023 End: 05-05-2023 ambulatory [place] Analisa [facility] Start: 01-14-2023 End: 01-14-2023 ambulatory [facility] Start: 12-31-2022 End: 01-01-2023 ambulatory [facility] Start: 09-10-2022 End: 09-10-2022 ambulatory [facility] Start: 05-20-2022 End: 05-20-2022 ambulatory [facility] Start: 05-07-2022 End: 05-08-2022 ambulatory [facility] Start: 04-22-2022 ambulatory [facility] Start: 04-22-2022 End: 04-22-2022 ambulatory [facility] Start: 04-22-2022 End: 04-22-2022 Encounter for general adult medical examination without abnormal findings [facility] Payers Date Payer Category Payer Unknown 2022 Unknown [id number] 1975 Unknown [id number] [id number] 1975 Unknown [id number] 2.16. [id number] 1975 Unknown [id number] 2.16. [id number] 1975 Unknown [id number] [id number] [id number] 1975 Unknown [id number] 2.16.8 [id number] Progress note 09-10-2022 Note Date & Type [...] PERCUTANEOUS BIOPSY PANCREAS GREENE CONVERSION Sulfamethoxazole-trimethoprim and [place] seed Current Outpatient Medications Medication Instructions carbamide [...] is no distension (more content not included)... [facility] Progress note 05-20-2022 Note Date & [...] eGFR 04/22/2022 92.2 >60.0 mL/min/1.73m*2 Final [facility]???s estimated glomerular filtration rate (eGFR) will [...] Monocytes Absolute 03/31 (more content not included)... [facility] Progress note 05-07-2022 Note Date & Type Note Facility 05-07-[address] is normal. Follow up as scheduled [facility] Progress note 04-22-2022 Note Date & [...] Sulfamethoxazole-Trimethoprim Diarrhea [employer] Text Annotation: Bactrim [place] Seed Diarrhea Social History Socioeconomic History Marital [...] More than three times a week Attends [employer] Services: Never Active Member of Clubs or [...] Gastrointestinal: No abd (more content not included)... [facility] Summary Purpose Family History No Family [...] section and content) DATE CREATED AUTHOR 10/14/2019 [facility] DATE CREATED AUTHOR AUTHOR'S ORGANIZ ATION 05/30/2022 [facility] DATE CREATED AUTHOR AUTHOR'S ORGANIZ ATION 09/11/2022 [facility] DATE CREATED AUTHOR AUTHOR'S ORGANIZ ATION 01/29/2023 [facility] DATE CREATED AUTHOR AUTHOR'S ORGANIZ ATION 01/27/2024 [facility] DATE CREATED AUTHOR AUTHOR'S ORGANIZ ATION 03/02/2024 [facility] FOR RECORDS PERTAINING TO PATIENTS WHO [...] BE BASED ON THE PRIMARY CLINICAL RECORDS. [facility] [employer] [facility]. provides no warranty or guarantee of the accuracy or completeness of information in this document.
[2024-06-20 08:00] VITALS: BP 148/98; PULSE 85; TEMP 36.3; O2SAT 100
[2024-06-20 08:42] VITALS: BP 110/62; PULSE 88; O2SAT 100
[2024-06-20 08:44] VITALS: BP 117/75; PULSE 94; O2SAT 99
[2024-06-20] MEDS: BUPIVACAINE HCL 0.25% PF 25 MG/10 ML VIAL INJ (08:46)
--- NOTE | 2024-06-20 08:46 | W.PM.PROCNOT ---
Date of procedure: 06/20/24 Pre-op diagnosis: M54.12 Post-op diagnosis: same as pre-op Procedure: Procedure: Left C
[2024-06-20] MEDS: LIDOCAINE HCL 2% 400 MG/20 ML MDV 3 ML INJ (08:47)
[2024-06-20] MEDS: IOHEXOL 240 MG/ML - 10 ML VIAL 12 MG INJ (08:47)
[2024-06-20] MEDS: DEXAMETHASONE SOD PHOS 10 MG/ML VIAL INJ (08:47)
--- NOTE | 2024-06-20 08:48 | W.PM.PROCNOT ---
Date of procedure: 06/20/24 Pre-op diagnosis: M54.12 Post-op diagnosis: same as pre-op Procedure: Procedure: Bilateral C5-6 transforaminal epidural steroid injection Medications: Bupivacaine 0.25% 1cc, lidocaine 2% 1cc, dexamethasone 10mg The patient was seen and examined in the preoperative holding area.? Informed consent was obtained and placed on the chart.? Patient was brought to the medical procedure unit and placed in the prone position where a timeout was completed verifying the correct patient, procedure site, position, and planned special equipment using sterile aseptic technique.? Under direct fluoroscopic visualization a 25-gauge Quincke tipped spinal needle was advanced at level left C5-6 to the designated neural foramen where contrast dye was injected to show adequate spread.? There was no evidence of vascular or adverse uptake.? Epidural spread was appreciated.? The above-mentioned injectate was then placed in a 1.5 mL aliquot preceded by negative aspiration.? The needle was removed. The same procedure, at the same level, was completed on the opposite side. ? Patient was taken to the postprocedural recovery area and monitored for an appropriate length of time before found suitable for discharge in the accompaniment of a responsible adult. Anesthesia: Local Surgeon: Anjel Escamilla Pathology: none sent Condition: stable Disposition: no change
== END 2024-06-20 08:53 | disposition home or self-care (01) ==
LOC: SURGOUT 07:45
PROVIDERS: Visit Provider Anesthesiology
DX: M54.12 Radiculopathy, cervical region (principal)
CPT/HCPCS: 64479; J0665; J1100; Q9966